=== PATIENT | male | born 1985 | race Caucasian/White ===

== ENCOUNTER 2019-09-01 00:02 | Inpatient (IN) | payer OTHER ==
--- NOTE | 2019-09-01 03:03 | PDOC ---
History of Present Illness - General Chief Complaint: Chest Pain Stated Complaint: CHEST PAINS Time Seen by Provider: 09/01/19 03:02 Past History - Past Medical History Allergies/Adverse Reactions: Allergies Allergy/AdvReac Type Severity Reaction Status Date / Time No Known Allergies Allergy Verified 09/01/19 00:18 COPD: No HTN: Yes (non medicated) Other medical history: cellulitis - Psycho Social/Smoking Cessation Hx Smoking History: Never smoked *Physical Exam - Vital Signs Last Vital Signs Temp Pulse Resp BP Pulse Ox 101.2 F H 121 H 20 151/84 98 09/01/19 00:15 09/01/19 00:15 09/01/19 00:15 09/01/19 00:15 09/01/19 00:15 ED Treatment Course - LABORATORY CBC & Chemistry Diagram: 09/01/19 03:34 09/01/19 04:28 Medical Decision Making - Medical Decision Making 09/01/19 04:04 HPI: 34yo M hx morbid obesity, HTN, and recurrent LLE cellulitis requiring multiple hospital admissions for IV antibiotics (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 States all sx are exactly same as prior cellulitis, but not as bad yet since it's early. Pt states this has been going on for many years, no trauma or wounds, no known cause. Multiple workups including CT scan of chest and ultrasound of leg without answers to cause. Does not see ID or specialist. Denies trauma, fall, hx DVT/PE, hemoptysis, recent travel (except for long drives as trucker hand), recent surgery, testosterone or hormone use, malignancy, hx CAD, FHx early CAD, fatigue, dizziness, numbness/ tingling, weakness, vision changes, cough, abdominal pain, blood in stool, diarrhea, constipation, dysuria, hematuria, confusion. PCP - Diana ROS: Constitutional: Positive for chills, fever. Negative for chills, fever, fatigue , diaphoresis. HENT: Negative for sore throat, rhinorrhea, congestion. Eyes: Negative for visual disturbance. Respiratory: Positive for shortness of breath. Negative for cough, and wheezing. Cardiovascular: Positive for chest pain, palpitations. Gastrointestinal: Positive for nausea and vomiting. Negative for abdominal pain , blood in stool, constipation, diarrhea. Genitourinary: Negative for dysuria, flank pain, and hematuria. Musculoskeletal: Positive for LLE pain. Negative for myalgias, back pain, and neck pain. Skin: Positive for erythema and warmth and swelling to LLE. Neurological: Positive for headache. Negative for light-headedness, dizziness, vertigo, syncope, weakness, numbness. Psychiatric/Behavioral: Negative for behavioral problems and confusion. PE: Gen: Alert, NAD, comfortable-appearing, obese HEENT: PERRL, EOMI, MMM, NCAT. No conjunctival pallor. Sclera are non-icteric. CV: Regular rate and rhythm. No murmurs, rubs, or gallops. PULM: No resp distress. CTAB, no wheezes, rales, or rhonchi. ABD: soft, NT/ND, no rebound tenderness or guarding, no CVA tenderness. BACK: No TTP of c/t/l-spine. No step-offs or deformities. MSK: No bony deformities. 2+ pulses in all extremities. NEURO: AAOx3. PERRL. No gross CN deficits. Strength and sensation grossly intact throughout. EXTREMITIES: No cyanosis. No clubbing. No calf tenderness. LLE: mild edema circumferentially lower leg, no erythema, mild warmth to anterior childers, anterior childers TTP, no calf tenderness, 2+ pulses, sensation to light touch intact throughout, moves ankle and toes normally. PSYCH: Normal mood and thought pattern. SKIN: Warm and dry. Normal capillary refill. No jaundice. MDM: 34yo M hx morbid obesity, HTN, and recurrent LLE cellulitis requiring multiple hospital admissions for IV antibiotics (at various hospitals) presents with acute onset x few hours of his typical LLE cellulitis sx, including LLE swelling /erythema/warmth/pain, fever, nausea, NBNB emesis x3, SOB, chest pain, headache , and palpitations. Tachycardic 120s, febrile 101.2, other VSS, +swelling and warmth to L anterior leg, LLE neurovascularly intact. Ddx: cellulitis, nec fasc (no crepitus, no severe pain/TTP, no gas on XR make of low concern), DVT, sepsis, PE, ACS/HI (HEART score 2), arrhythmia, PNA, metabolic derangement, anemia -Sepsis and cardiac set -IVF -Tylenol -XR LLE -Duplex LLE -1g Ceftriaxone and Vanc -CTPE -Dispo: pending w/u 09/01/19 04:21 Called [facility] ED - multiple outpatient ortho visits years ago, but no ED visits or admissions. Called [facility], [place] medical records - faxed release form (signed by pt) and told would send medical records back in 15mins. 09/01/19 06:09 CXR reviewed by me and attending: no acute pathology XR L tib/fib/foot reviewed by me and attending: no acute pathology, no e/o air EKG reviewed: sinus tachycardia, 119bpm, normal intervals, normal axis, TWI in III, no ST elevations or depressions, no prior for comparison Labs reviewed. CBC,CMP WBC 33.2 K/mm3 (4.0-10.0) H* 09/01/19 03:34 RBC 4.57 M/mm3 (4.00-5.60) 09/01/19 03:34 Hgb 14.4 GM/dL (11.7-16.9) 09/01/19 03:34 Hct 43.3 % (35.4-49) 09/01/19 03:34 MCV 94.7 fl (80-96) 09/01/19 03:34 MCH 31.4 pg (25.7-33.7) 09/01/19 03:34 MCHC 33.2 g/dl (32.0-35.9) 09/01/19 03:34 RDW 13.1 % (11.9-15.9) 09/01/19 03:34 Plt Count 246 K/MM3 (134-434) 09/01/19 03:34 MPV 9.3 fl (7.5-11.1) 09/01/19 03:34 Absolute Neuts (auto) 29.5 K/mm3 (1.5-8.0) H 09/01/19 03:34 Neutrophils % 88.8 % (42.8-82.8) H 09/01/19 03:34 Lymphocytes % 5.0 % (8-40) L 09/01/19 03:34 Monocytes % 5.7 % (3.8-10.2) 09/01/19 03:34 Eosinophils % 0.0 % (0-4.5) 09/01/19 03:34 Basophils % 0.5 % (0-2.0) 09/01/19 03:34 Nucleated RBC % 0 % (0-0) 09/01/19 03:34 Sodium 137 mmol/L (136-145) 09/01/19 04:28 Potassium 4.0 mmol/L (3.5-5.1) 09/01/19 04:28 Chloride 102 mmol/L (98-107) 09/01/19 04:28 Carbon Dioxide 27 mmol/L (21-32) 09/01/19 04:28 Anion Gap 8 MMOL/L (8-16) 09/01/19 04:28 BUN 8.1 mg/dL (7-18) 09/01/19 04:28 Creatinine 1.1 mg/dL (0.55-1.3) 09/01/19 04:28 Est GFR (CKD-EPI)AfAm 101.69 09/01/19 04:28 Est GFR (CKD-EPI)NonAf 87.74 09/01/19 04:28 Random Glucose 104 mg/dL (74-106) 09/01/19 04:28 Lactic Acid 1.3 mmol/L (0.4-2.0) 09/01/19 04:28 Calcium 9.3 mg/dL (8.5-10.1) 09/01/19 04:28 Phosphorus 2.8 mg/dL (2.5-4.9) 09/01/19 04:28 Magnesium 2.0 mg/dL (1.8-2.4) 09/01/19 04:28 Total Bilirubin 0.6 mg/dL (0.2-1) 09/01/19 04:28 AST 21 U/L (15-37) 09/01/19 04:28 ALT 32 U/L (13-61) 01/04/20 04:28 Alkaline Phosphatase 76 U/L (45-117) 09/01/19 04:28 Creatine Kinase 129 U/L (26-308) 09/01/19 04:28 Troponin I < 0.02 ng/ml (0.00-0.05) 09/01/19 04:28 Total Protein 7.8 g/dl (6.4-8.2) 09/01/19 04:28 Albumin 3.6 g/dl (3.4-5.0) 09/01/19 04:28 Lipase 64 U/L (73-393) L 09/01/19 04:28 TSH 1.07 uIU/ml (0.358-3.74) 09/01/19 04:28 09/01/19 07:06 Pending CTPE read, duplex, flu, 2nd trop, admit for sepsis 2/2 cellulitis. Received papers from [facility], [place] for admission 03/2017. Of note, CTPE negative, WBC 29k, cellulitis resolved with cefazolin. Signed out to oncoming team. Discharge - Discharge Information Problems reviewed: Yes Clinical Impression/Diagnosis: Cellulitis, Sepsis Condition: Stable - Follow up/Referral Referrals: Jerry Ortiz MD [Primary Care Provider] - - Patient Discharge Instructions - Post Discharge Activity
[2019-09-01] MEDS ORDERED: SODIUM CHLORIDE 0.9% 500 ML INFUS.BAG IV ONE (03:20)
[2019-09-01] MEDS ORDERED: ACETAMINOPHEN 1000 MG/100 ML VIAL (NON FORMULARY) IVPB ONE (03:20)
[2019-09-01] MEDS ORDERED: CEFTRIAXONE 1 GM in DEXTROSE 5%-WATER - 100 ML IVPB ONE (04:38)
[2019-09-01] MEDS ORDERED: cefTRIAXone SODIUM 1 GM VIAL ONE (04:46)
[2019-09-01] MEDS ORDERED: ACETAMINOPHEN INJECTION 100 ML IVPB ONE (04:46)
[2019-09-01 04:56] LABS: BASO % 0.5 % (0-2.0); HEMATOCRIT 43.3 % (35.4-49); HEMOGLOBIN 14.4 GM/dL (11.7-16.9); MCH 31.4 pg (25.7-33.7); MCHC 33.2 g/dl (32.0-35.9); MEAN CELL VOLUME 94.7 fl (80-96); MEAN PLT VOLUME 9.3 fl (7.5-11.1); MONO % 5.7 % (3.8-10.2); NEUT % 88.8 % (42.8-82.8); PLATELET COUNT 246 K/MM3 (134-434); RBC 4.57 M/mm3 (4.00-5.60); RDW 13.1 % (11.9-15.9)
[2019-09-01 05:05] LABS: WHITE BLOOD COUNT 33.2 K/mm3 (4.0-10.0)
[2019-09-01 05:09] LABS: VENOUS PC02 50.1 mmHg (38-52); VENOUS PH 7.38 (7.31-7.41)
[2019-09-01 05:12] LABS: VENOUS PO2 < 49 mmHg (28-48)
[2019-09-01 05:48] LABS: ALBUMIN 3.6 g/dl (3.4-5.0); BILIRUBIN,TOTAL 0.6 mg/dL (0.2-1); BLOOD UREA NITROGEN 8.1 mg/dL (7-18); CALCIUM 9.3 mg/dL (8.5-10.1); CREATININE 1.1 mg/dL (0.55-1.3); PHOSPHOROUS 2.8 mg/dL (2.5-4.9); TOT PROT 7.8 g/dl (6.4-8.2)
--- NOTE | 2019-09-01 05:59 | PDOC ---
Attending Attestation - Resident Resident Name: Lisa Chavis - ED Attending Attestation I have performed the following: I have examined & evaluated the patient, The case was reviewed & discussed with the resident, I agree w/resident's findings & plan, Exceptions are as noted - HPI HPI: 09/01/19 05:50 Mr kebede is a 34 o obese M who presents to the ER with a complaint of left leg pain, chest pain, and fever Pt states that over the past 10 years, he has had multiple episodes of cellulitis for which he has been treated at multiple hospitals He states his current constellation of symptoms have been present in the past each time he has had cellulitis He has noted leg pain and fever today No trauma to the leg No pain with walking PMH: PSH: Meds:denies ALL: NKDA 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 ENT: Ears normal, nares patent, oropharynx clear without exudates. Moist mucous membranes. NECK: Normal range of motion, supple LUNGS: Breath sounds equal, clear to auscultation bilaterally. No wheezes, and no crackles. HEART:Regular rate and rhythm, normal S1 and S2 without murmur, rub or gallop. ABDOMEN: Soft, nontender, normoactive bowel sounds. EXTREMITIES: Normal range of motion, no edema. NEUROLOGICAL: Cranial nerves II through XII grossly intact. Normal speech. No focal neurological deficits. SKIN: Warm, Dry, normal turgor, no rashes or lesions noted. - Medical Decision Making 09/01/19 06:00 Laboratory Tests 09/01/19 09/01/19 09/01/19 03:34 04:28 04:28 WBC 33.2 H* Hgb 14.4 Hct 43.3 Plt Count 246 VBG pH POC VBG pCO2 POC VBG pO2 BUN 8.1 Creatinine 1.1 Lactic Acid Creatine Kinase 129 Troponin I < 0.02 09/01/19 09/01/19 04:28 04:28 WBC Hgb Hct Plt Count VBG pH 7.38 POC VBG pCO2 50.1 POC VBG pO2 < 49 H BUN Creatinine Lactic Acid 1.3 Creatine Kinase Troponin I Pt with lower extremity warmth and faint Erythema EKG: ST rate of 119 bpm, axis nml, intervals nml, no st elevation or depression , t waves upright CXR: no consolidation Xray tib-fib: no free air noted, no fracture noted Xray foot-ankle: no free air, no obvious fracture Doubt necrotizing faciitis Pt with tachycardia and chest pain which are new for him Will do: CTA chest Duplex leg Will plan to admit Will do Ceftriaxone IV Clinical impression: Cellulitis, initial presentation 09/01/19 06:35
[2019-09-01 06:17] LABS: EPI CELLS 1.9 /HPF (0-5/HPF); HYALINE CASTS 13 /lpf (0-8); PH,URINE 5.5 (5.0-8.0); URINE APPEARANCE CLEAR; URINE BILIRUBIN NEGATIVE (NEGATIVE); URINE COLOR YELLOW; URINE GLUCOSE (UA) NEGATIVE (NEGATIVE); URINE KETONE TRACE (NEGATIVE); URINE LEUK ESTERASE TRACE (NEGATIVE); URINE NITRITE NEGATIVE (NEGATIVE); URINE PROTEIN TRACE (NEGATIVE); URINE RBC 3 /hpf (0-4); URINE WBC 7 /hpf (0-5)
[2019-09-01] MEDS ORDERED: VANCOMYCIN 1 GM in D5W (PRE-DOCKED) 1,000 MG/250 ML IVPB ONE (07:10)
[2019-09-01 08:04] LABS: ANISOCYTOSIS 0; HELMET CELLS 0; HOWELL-JOLLY BODIES 0; MACROCYTOSIS 0; OVALOCYTE 0; PLATELET ESTIMATE NORMAL; ROULEAU 0; SICKELED CELLS 0; TARGET CELLS 0; TEAR DROP CELLS 0; TOXIC GRANULATION 0
[2019-09-01 08:53] LABS: INR 1.32 (0.83-1.09); PROTHROMBIN TIME (PATIENT) 15.6 SEC (9.7-13.0)
[2019-09-01 08:56] LABS: ACTIVATED PTT 30.7 SECONDS (25.2-36.5)
--- NOTE | 2019-09-01 09:53 | PDOC ---
*Physical Exam - Vital Signs Last Vital Signs Temp Pulse Resp BP Pulse Ox 98.7 F 107 H 20 127/79 99 09/01/19 09:13 09/01/19 09:13 09/01/19 00:15 09/01/19 09:13 09/01/19 09:13 - Physical Exam General Appearance: Yes: Nourished, Appropriately Dressed, Mild Distress, Obese HEENT: positive: EOMI, FABIAN, Normal ENT Inspection, Pharynx Normal Neck: positive: Trachea midline, Normal Thyroid, Supple Respiratory/Chest: positive: Lungs Clear, Normal Breath Sounds Cardiovascular: positive: Tachycardia Vascular Pulses: Dorsalis-Pedis (R): 2+, Doralis-Pedis (L): 2+ Gastrointestinal/Abdominal: positive: Normal Bowel Sounds, Soft. negative: Guarding, Rebound Extremity: positive: Tender, Swelling, Calf Tenderness, Erythema, Inflammation Neurologic: positive: Fully Oriented, Alert, Normal Mood/Affect ED Treatment Course - LABORATORY CBC & Chemistry Diagram: 09/01/19 03:34 09/01/19 04:28 - ADDITIONAL ORDERS Additional order review: Laboratory Results 09/01/19 09/01/19 09/01/19 08:10 08:10 05:57 PT with INR 15.60 H INR 1.32 H PTT (Actin FS) 30.7 VBG pH POC VBG pCO2 POC VBG pO2 VBG HCO3 VBG O2 Sat (Lalita) VBG Base Excess Sodium Potassium Chloride Carbon Dioxide Anion Gap BUN Creatinine Est GFR (CKD-EPI)AfAm Est GFR (CKD-EPI)NonAf Random Glucose Lactic Acid Calcium Phosphorus Magnesium Total Bilirubin AST ALT Alkaline Phosphatase Creatine Kinase Troponin I < 0.02 Total Protein Albumin Lipase TSH Urine Color Yellow Urine Appearance Clear Urine pH 5.5 Ur Specific [place] 1.025 Urine Protein Trace Urine Glucose (UA) Negative Urine Ketones Trace H Urine Blood Negative Urine Nitrite Negative Urine Bilirubin Negative Urine Urobilinogen 1.0 Ur Leukocyte Esterase Trace Urine WBC (Auto) 7 Urine RBC (Auto) 3 Urine Casts (Auto) 13 U Epithel Cells (Auto) 1.9 Urine Bacteria (Auto) 79.0 09/01/19 09/01/19 09/01/19 04:28 04:28 04:28 PT with INR INR PTT (Actin FS) VBG pH 7.38 POC VBG pCO2 50.1 POC VBG pO2 < 49 H VBG HCO3 29.3 H VBG O2 Sat (Lalita) 28.3 L VBG Base Excess 3.6 H Sodium Potassium Chloride Carbon Dioxide Anion Gap BUN Creatinine Est GFR (CKD-EPI)AfAm Est GFR (CKD-EPI)NonAf Random Glucose Lactic Acid Calcium Phosphorus 2.8 Magnesium 2.0 Total Bilirubin AST ALT Alkaline Phosphatase Creatine Kinase Troponin I Total Protein Albumin Lipase TSH 1.07 Urine Color Urine Appearance Urine pH Ur Specific [place] Urine Protein Urine Glucose (UA) Urine Ketones Urine Blood Urine Nitrite Urine Bilirubin Urine Urobilinogen Ur Leukocyte Esterase Urine WBC (Auto) Urine RBC (Auto) Urine Casts (Auto) U Epithel Cells (Auto) Urine Bacteria (Auto) 09/01/19 09/01/19 09/01/19 04:28 04:28 04:28 PT with INR INR PTT (Actin FS) VBG pH POC VBG pCO2 POC VBG pO2 VBG HCO3 VBG O2 Sat (Lalita) VBG Base Excess Sodium 137 Potassium 4.0 Chloride 102 Carbon Dioxide 27 Anion Gap 8 BUN 8.1 Creatinine 1.1 Est GFR (CKD-EPI)AfAm 101.69 Est GFR (CKD-EPI)NonAf 87.74 Random Glucose 104 Lactic Acid 1.3 Calcium 9.3 Phosphorus Magnesium Total Bilirubin 0.6 AST 21 ALT 32 Alkaline Phosphatase 76 Creatine Kinase Troponin I Total Protein 7.8 Albumin 3.6 Lipase 64 L TSH Urine Color Urine Appearance Urine pH Ur Specific [place] Urine Protein Urine Glucose (UA) Urine Ketones Urine Blood Urine Nitrite Urine Bilirubin Urine Urobilinogen Ur Leukocyte Esterase Urine WBC (Auto) Urine RBC (Auto) Urine Casts (Auto) U Epithel Cells (Auto) Urine Bacteria (Auto) 09/01/19 04:28 PT with INR INR PTT (Actin FS) VBG pH POC VBG pCO2 POC VBG pO2 VBG HCO3 VBG O2 Sat (Lalita) VBG Base Excess Sodium Potassium Chloride Carbon Dioxide Anion Gap BUN Creatinine Est GFR (CKD-EPI)AfAm Est GFR (CKD-EPI)NonAf Random Glucose Lactic Acid Calcium Phosphorus Magnesium Total Bilirubin AST ALT Alkaline Phosphatase Creatine Kinase 129 Troponin I < 0.02 Total Protein Albumin Lipase TSH Urine Color Urine Appearance Urine pH Ur Specific [place] Urine Protein Urine Glucose (UA) Urine Ketones Urine Blood Urine Nitrite Urine Bilirubin Urine Urobilinogen Ur Leukocyte Esterase Urine WBC (Auto) Urine RBC (Auto) Urine Casts (Auto) U Epithel Cells (Auto) Urine Bacteria (Auto) 09/01/19 03:34 RBC 4.57 MCV 94.7 MCHC 33.2 RDW 13.1 MPV 9.3 Neutrophils % 88.8 H Lymphocytes % 5.0 L Monocytes % 5.7 Eosinophils % 0.0 Basophils % 0.5 - Medications Given in the ED: ED Medications Discontinued Medications Generic Name Dose Route Start Last Admin Trade Name Shweta PRN Reason Stop Dose Admin Acetaminophen 1,000 mg 09/01/19 03:20 09/01/19 04:58 Ofirmev Injection - IVPB 09/01/19 03:21 1,000 mg ONCE ONE Administration Ceftriaxone Sodium 1 gm/ 100 mls @ 200 mls/hr 09/01/19 04:38 09/01/19 04:58 Dextrose IVPB 09/01/19 05:07 200 mls/hr ONCE ONE Administration Sodium Chloride 1,000 ml 09/01/19 03:20 09/01/19 04:58 Normal Saline - IV 09/01/19 03:21 1,000 ml ONCE ONE Administration Vancomycin HCl 1,000 mg 09/01/19 07:10 09/01/19 09:00 Vancomycin (Pre-Docked) IVPB 09/01/19 07:11 1,000 mg ONCE ONE Administration Protocol Medical Decision Making - Medical Decision Making 34yo M pmh morbid obesity, HTN, and recurrent LLE cellulitis requiring multiple hospital admissions for IV antibiotics (at various hospitals) presents with acute onset x few hours of his typical LLE cellulitis #Cellulitis no crepitus, no severe pain/TTP, no gas on XR make of low concern), Duplex LLE- no DVT 1g Ceftriaxone and Vanc CTPE- no acute cahnges Dispo: admitted under Dr. Tellez service 09/01/19 10:38 09/01/19 10:40 Discharge - Discharge Information Problems reviewed: Yes Clinical Impression/Diagnosis: Cellulitis, Sepsis Condition: Stable - Follow up/Referral - Patient Discharge Instructions - Post Discharge Activity
[2019-09-01] MEDS ORDERED: ACETAMINOPHEN 325 MG TABLET (FP) PO PRN (12:11)
[2019-09-01] MEDS ORDERED: ONDANSETRON *ODT* 4 MG TABLET SL PRN (12:11)
--- NOTE | 2019-09-01 12:16 | HP ---
Admitting History and Physical - Primary Care Physician PCP: Fabio Tellez - Admission Chief Complaint: 34 Y/O MORBIDLY OBESE MALE WITH 2 DAYS OF REDNESS TO LEFT LOWER EXTEREMITY History of Present Illness: 34 Y/O MAKE HTN, MORBID OBESITY WITH LEFT LOWER EXTREMITY ERYTHEMA, DENIES TRAVELING RECENTLY AND DENIES INSECT BITES. CHEST PAIN WAS ATYPICAL AND CT JOSUÉ AND CARDIAC ENZYMES WERE NEGATIVE. History Source: Patient - Past Medical History Cardiovascular: Yes: HTN - Smoking History Smoking history: Never smoked Home Medications - Allergies Allergies/Adverse Reactions: Allergies Allergy/AdvReac Type Severity Reaction Status Date / Time No Known Allergies Allergy Verified 09/01/19 00:18 - Home Medications Home Medications: Ambulatory Orders NK [No Known Home Medication] 09/01/19 Review of Systems - Review of Systems Constitutional: reports: Fever Cardiovascular: reports: No Symptoms Respiratory: reports: No Symptoms Gastrointestinal: reports: No Symptoms Genitourinary: reports: No Symptoms Integumentary: reports: Erythema Neurological: reports: No Symptoms Endocrine: reports: No Symptoms Hematology/Lymphatic: reports: No Symptoms Psychiatric: reports: No Symptoms Physical Examination Vital Signs: Vital Signs Temperature 98.7 F 09/01/19 09:13 Pulse Rate 107 H 09/01/19 09:13 Respiratory Rate 20 09/01/19 00:15 Blood Pressure 127/79 09/01/19 09:13 O2 Sat by Pulse Oximetry (%) 99 09/01/19 09:13 Constitutional: Yes: Mild Distress Cardiovascular: Yes: Regular Rate and Rhythm Respiratory: Yes: WNL Gastrointestinal: Yes: Soft, Abdomen, Obese Renal/: Yes: WNL Musculoskeletal: Yes: Muscle Weakness Extremities: Yes: Erythema (LEFT LOWER LEG ERYTHEMA AND TENDERNESS) Integumentary: Yes: Erythema Wound/Incision: Yes: Open to air Neurological: Yes: WNL ...Motor Strength: WNL Psychiatric: Yes: WNL Labs: CBC, BMP 09/01/19 03:34 09/01/19 04:28 Problem List - Problems (1) Morbid obesity with BMI of 40.0-44.9, adult Code(s): E66.01 - MORBID (SEVERE) OBESITY DUE TO EXCESS CALORIES; Z68.41 - BODY MASS INDEX (BMI) 40.0-44.9, ADULT (2) Hypertension Code(s): I10 - ESSENTIAL (PRIMARY) HYPERTENSION (3) Cellulitis Code(s): L03.90 - CELLULITIS, UNSPECIFIED Assessment/Plan IV ABX CEFTRIAXONE IV DAILY DVT PROPHYLAXIS TYLENOL PRN CHECK CULTURES RAPID FLU SWAB FOR FEVERS
[2019-09-01 12:21] VITALS: BMI 55.3
[2019-09-01] MEDS ORDERED: FLU VACCINE QUAD 60 MCG/0.5 ML (MDV 19-20) IM ONE (13:01)
--- NOTE | 2019-09-01 23:17 | EKG ---
Test Reason : Blood Pressure : / mmHG Vent. Rate : 119 BPM Atrial Rate : 119 BPM P-R Int : 134 ms QRS Dur : 086 ms QT Int : 304 ms P-R-T Axes : 050 063 -19 degrees QTc Int : 427 ms SINUS TACHYCARDIA ABNORMAL ECG NO PREVIOUS ECGS AVAILABLE Confirmed by WILLIAM VIZCARRA MD ([id number]) on 09/01/2019 11:16:55 PM Referred By: Confirmed By:WILLIAM VIZCARRA MD
[2019-09-01] MEDS: HEPARIN NA (PORCINE) 5,000 UNITS/ML 1ML VIAL SQ SCH (23:21)
[2019-09-02] MEDS ORDERED: LISINOPRIL 5 MG TABLET (FP) PO ONE (01:34)
[2019-09-02] MEDS ORDERED: PT OWN MED DRAWER 7, Y5N ONE (01:38)
--- NOTE | 2019-09-02 08:40 | PN ---
Progress Note, Physician Chief Complaint: FEELS BETTER +CHILLS OVERNIGHT - Current Medication List Current Medications: Active Medications Acetaminophen (Tylenol -) 650 mg PO Q6H PRN PRN Reason: FEVER Last Admin: 09/01/19 12:42 Dose: 650 mg Heparin Sodium (Porcine) (Heparin -) 5,000 unit SQ BID GINNY Last Admin: 09/01/19 23:21 Dose: 5,000 unit Ceftriaxone Sodium 1 gm/ (Dextrose) 50 mls @ 200 mls/hr IVPB DAILY [facility]; Protocol Influenza Virus Vaccine Quadrival (Flulaval Quad ) 60 mcg IM .ONCE ONE Stop: 09/01/19 13:02 Ondansetron HCl (Zofran Odt -) 8 mg SL Q6H PRN PRN Reason: NAUSEA AND/OR VOMITING - Objective Vital Signs: Vital Signs Temperature 98.9 F 09/02/19 06:53 Pulse Rate 85 09/02/19 06:53 Respiratory Rate 18 09/02/19 06:53 Blood Pressure 129/91 09/02/19 06:53 O2 Sat by Pulse Oximetry (%) 99 09/01/19 21:00 Constitutional: Yes: Mild Distress Cardiovascular: Yes: Regular Rate and Rhythm Respiratory: Yes: WNL Gastrointestinal: Yes: WNL Genitourinary: Yes: WNL Musculoskeletal: Yes: WNL Edema: Yes Edema: LLE: 1+ Wound/Incision: Yes: Open to air Neurological: Yes: WNL ...Motor Strength: WNL Psychiatric: Yes: WNL Labs: CBC, BMP 09/01/19 03:34 09/01/19 04:28 INR, PTT INR 1.32 (0.83-1.09) H 09/01/19 08:10 Problem List - Problems (1) Morbid obesity with BMI of 40.0-44.9, adult Code(s): E66.01 - MORBID (SEVERE) OBESITY DUE TO EXCESS CALORIES; Z68.41 - BODY MASS INDEX (BMI) 40.0-44.9, ADULT (2) Hypertension Code(s): I10 - ESSENTIAL (PRIMARY) HYPERTENSION (3) Cellulitis Code(s): L03.90 - CELLULITIS, UNSPECIFIED Assessment/Plan IV ABX CEFTRIAXONE IV DAILY DVT PROPHYLAXIS TYLENOL PRN CHECK CULTURES RAPID FLU SWAB FOR FEVERS NEGATIVE
[2019-09-02 09:21] LABS: HEMATOCRIT 42.6 % (35.4-49); HEMOGLOBIN 14.3 GM/dL (11.7-16.9); MCH 31.9 pg (25.7-33.7); MCHC 33.5 g/dl (32.0-35.9); MEAN CELL VOLUME 95.1 fl (80-96); MEAN PLT VOLUME 9.5 fl (7.5-11.1); PLATELET COUNT 205 K/MM3 (134-434); RBC 4.48 M/mm3 (4.00-5.60); WHITE BLOOD COUNT 13.3 K/mm3 (4.0-10.0)
[2019-09-02] MEDS ORDERED: DEXTROSE 5%-WATER - 50 ML IVPB ONE (09:43)
[2019-09-02] MEDS ORDERED: cefTRIAXone SODIUM 1 GM VIAL ONE (09:43)
[2019-09-02] MEDS ORDERED: CEFTRIAXONE 1 GM in DEXTROSE 5%-WATER - 50 ML IVPB SCH (10:00)
[2019-09-02 10:02] LABS: ALBUMIN 3.2 g/dl (3.4-5.0); BILIRUBIN,TOTAL 0.6 mg/dL (0.2-1); BLOOD UREA NITROGEN 8.1 mg/dL (7-18); CREATININE 0.7 mg/dL (0.55-1.3); POTASSIUM 3.8 mmol/L (3.5-5.1); TOT PROT 7.2 g/dl (6.4-8.2)
[2019-09-02] MEDS: HEPARIN NA (PORCINE) 5,000 UNITS/ML 1ML VIAL SQ SCH ×2 (10:05→21:57)
--- NOTE | 2019-09-02 19:46 | PN ---
Progress Note (short form) - Note Progress Note: ID CONSULT DICTATED RECURRENT L LE CELLULITIS FEVER/ LEUKOCYTOSIS R/O SEPSIS MORBID OBESITY PENDING C/S EMPIRIC CEFAZOLIN 2GM Q8H
[2019-09-02] MEDS: CEFAZOLIN 2 GM/D5W 2 GM/50 ML ML IVPB SCH (20:29)
[2019-09-03] MEDS: CEFAZOLIN 2 GM/D5W 2 GM/50 ML ML IVPB SCH ×3 (01:57→18:07)
[2019-09-03] MEDS: HEPARIN NA (PORCINE) 5,000 UNITS/ML 1ML VIAL SQ SCH ×2 (09:45→21:18)
--- NOTE | 2019-09-03 12:51 | PN ---
Progress Note, Physician Chief Complaint: LLE cellulitis History of Present Illness: NAD Pain improved /10 now On IV abx - Current Medication List Current Medications: Active Medications Acetaminophen (Tylenol -) 650 mg PO Q6H PRN PRN Reason: FEVER Last Admin: 09/01/19 12:42 Dose: 650 mg Heparin Sodium (Porcine) (Heparin -) 5,000 unit SQ BID GINNY Last Admin: 09/03/19 09:45 Dose: 5,000 unit Cefazolin Sodium/Dextrose (Ancef 2 Gm Premixed Ivpb -) 2 gm in 50 mls @ 100 mls /hr IVPB Q8H-IV GINNY Last Admin: 09/03/19 09:45 Dose: 100 mls/hr Ondansetron HCl (Zofran Odt -) 8 mg SL Q6H PRN PRN Reason: NAUSEA AND/OR VOMITING - Objective Vital Signs: Vital Signs Temperature 98.4 F 09/03/19 08:10 Pulse Rate 85 09/03/19 08:10 Respiratory Rate 09/03/19 08:10 Blood Pressure 153/83 09/03/19 08:10 O2 Sat by Pulse Oximetry (%) 98 09/02/19 21:00 Constitutional: Yes: Well Nourished, No Distress, Calm, Obese Cardiovascular: Yes: Regular Rate and Rhythm Respiratory: Yes: Regular Gastrointestinal: Yes: WNL, Normal Bowel Sounds, Soft, Abdomen, Obese Genitourinary: Yes: WNL Musculoskeletal: Yes: WNL Extremities: Yes: WNL Edema: No Peripheral Pulses WNL: Yes Integumentary: Yes: Other (LLE warm and tender to touch) Neurological: Yes: Alert, Oriented Psychiatric: Yes: Alert, Oriented Labs: CBC, BMP 09/02/19 08:30 09/02/19 08:30 INR, PTT INR 1.32 (0.83-1.09) H 09/01/19 08:10 Problem List - Problems (1) Cellulitis Assessment/Plan: -Continue IV abx -ID on board -Leukocytosis improved -afebrile now Problems reviewed: Yes Code(s): L03.90 - CELLULITIS, UNSPECIFIED (2) Morbid obesity with BMI of 40.0-44.9, adult Problems reviewed: Yes Code(s): E66.01 - MORBID (SEVERE) OBESITY DUE TO EXCESS CALORIES; Z68.41 - BODY MASS INDEX (BMI) 40.0-44.9, ADULT Assessment/Plan see problem list
--- NOTE | 2019-09-03 12:59 | CONS ---
INFECTIOUS DISEASE CONSULTATION DATE OF CONSULTATION: DATE OF DICTATION: 09/02/2019 HISTORY: The patient is a 34-year-old male with a history of recurrent left lower extremity cellulitis now admitted with cellulitis, fever, and leukocytosis. The patient reports a long history of recurrent cellulitis of the left lower extremity. He has had multiple previous hospital admissions at other institutions. He reports that workups in the past have been unrevealing. He now presents with a several-hour history of worsening left lower extremity swelling, erythema, warmth, and pain. He presented to the emergency room where he was noted to have temperature 101.2 and a white blood cell count of 33,000. He reports fever, nausea, and vomiting. The patient denies any traumatic injury to his left lower extremity. No history of insect or animal bites or scratches. He denies prior history of multidrug-resistant pathogens. PAST MEDICAL HISTORY: Positive for recurrent left lower extremity cellulitis, obesity, hypertension. ALLERGIES: No known allergies. MEDICATIONS: Include Tylenol, ceftriaxone, heparin, lisinopril, vancomycin. 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 He is a nonsmoker, nondrinker. SYSTEMS REVIEW: Neurologic: No loss of consciousness, seizure activity, focal weakness. Cardiac: Positive for chest pain. Respiratory: Negative cough or sputum production. Gastrointestinal: Positive nausea, diarrhea. Genitourinary: Negative for urinary tract infection. LABORATORY DATA: White count 33.0 with left shift, hematocrit 43.3, platelets 246, creatinine 0.7. Lactic acid normal. Doppler exam negative for DVT. PHYSICAL EXAMINATION: General: He is obese. Supine in bed in no acute distress. Vital Signs: Temperature 97.7, blood pressure 135/76, pulse 95 regular, respirations 20 per minute. HEENT: Sclerae anicteric. Heart: Sounds S1, S2. Lungs: Clear. Abdomen: Obese, soft, nontender. Extremities: Examination of the left lower extremity, there is diffuse swelling of the left lower extremity from the thigh to the foot. It appears larger than his right lower extremity. There is some faint erythema involving the distal aspect of the left lower extremity. It is warm to touch. There is slight calf tenderness. Negative for Homans sign. IMPRESSION: 1. Recurrent left lower extremity cellulitis. 2. Fever, leukocytosis, rule out sepsis. 3. Morbid obesity. PLAN: Await cultures. Empiric antibiotic coverage with cefazolin 2 g IV piggyback every 8 hours. Elevation. Analgesics. Thank you for the kind referral. SOFIA JONES M.D. [facility]/[id number]
[2019-09-03] MEDS: LISINOPRIL 5 MG TABLET (FP) PO SCH (16:34)
[2019-09-04] MEDS: CEFAZOLIN 2 GM/D5W 2 GM/50 ML ML IVPB SCH ×2 (02:53→11:11)
[2019-09-04 08:08] LABS: BASO % 0.9 % (0-2.0); HEMATOCRIT 40.9 % (35.4-49); HEMOGLOBIN 13.6 GM/dL (11.7-16.9); LYMPH % 23.7 % (8-40); MCH 31.4 pg (25.7-33.7); MCHC 33.2 g/dl (32.0-35.9); MEAN CELL VOLUME 94.6 fl (80-96); MEAN PLT VOLUME 9.2 fl (7.5-11.1); MONO % 8.3 % (3.8-10.2); NEUT % 66.1 % (42.8-82.8); PLATELET COUNT 234 K/MM3 (134-434); RBC 4.33 M/mm3 (4.00-5.60); RDW 12.9 % (11.9-15.9); WHITE BLOOD COUNT 12.2 K/mm3 (4.0-10.0)
[2019-09-04 08:18] LABS: ALBUMIN 3.2 g/dl (3.4-5.0); BILIRUBIN,TOTAL 0.3 mg/dL (0.2-1); BLOOD UREA NITROGEN 8.1 mg/dL (7-18); CALCIUM 8.8 mg/dL (8.5-10.1); CREATININE 0.7 mg/dL (0.55-1.3)
[2019-09-04] MEDS: LISINOPRIL 5 MG TABLET (FP) PO SCH (11:11)
[2019-09-04] MEDS: HEPARIN NA (PORCINE) 5,000 UNITS/ML 1ML VIAL SQ SCH (11:11)
--- NOTE | 2019-09-04 11:16 | DS ---
Physical Examination Vital Signs: Vital Signs Temperature 98.2 F 09/04/19 07:00 Pulse Rate 96 H 09/04/19 07:00 Respiratory Rate 20 09/04/19 07:00 Blood Pressure 154/78 09/04/19 07:00 O2 Sat by Pulse Oximetry (%) 98 09/03/19 21:00 Findings/Remarks: Mr kebede is a 34 o obese M who presents to the ER with a complaint of left leg pain, chest pain, and fever Pt states that over the past 10 years, he has had multiple episodes of cellulitis for which he has been treated at multiple hospitals He states his current constellation of symptoms have been present in the past each time he has had cellulitis He has noted leg pain and fever today No trauma to the leg No pain with walking Constitutional: Yes: Well Nourished, No Distress, Calm, Obese Cardiovascular: Yes: Regular Rate and Rhythm Respiratory: Yes: Regular Gastrointestinal: Yes: Normal Bowel Sounds, Soft, Abdomen, Obese Musculoskeletal: Yes: WNL Extremities: Yes: WNL Edema: No Peripheral Pulses WNL: Yes Neurological: Yes: Alert, Oriented Psychiatric: Yes: Alert, Oriented Labs: CBC, BMP 09/04/19 06:35 09/04/19 06:35 Discharge Summary Problems reviewed: Yes Reason For Visit: CELLULITIS/SEPSIS Current Active Problems Cellulitis (Acute) Hypertension (Acute) Morbid obesity with BMI of 40.0-44.9, adult (Acute) Sepsis (Acute) Laboratory Last Values WBC 12.2 K/mm3 (4.0-10.0) H 09/04/19 06:35 RBC 4.33 M/mm3 (4.00-5.60) 09/04/19 06:35 Hgb 13.6 GM/dL (11.7-16.9) 09/04/19 06:35 Hct 40.9 % (35.4-49) 09/04/19 06:35 MCV 94.6 fl (80-96) 09/04/19 06:35 MCH 31.4 pg (25.7-33.7) 09/04/19 06:35 MCHC 33.2 g/dl (32.0-35.9) 09/04/19 06:35 RDW 12.9 % (11.9-15.9) 09/04/19 06:35 Plt Count 234 K/MM3 (134-434) 09/04/19 06:35 MPV 9.2 fl (7.5-11.1) 09/04/19 06:35 Absolute Neuts (auto) 8.1 K/mm3 (1.5-8.0) H 09/04/19 06:35 Neutrophils % 66.1 % (42.8-82.8) D 09/04/19 06:35 Neutrophils % (Manual) 93.0 % (42.8-82.8) H 09/01/19 03:34 Band Neutrophils % 1.0 % 09/01/19 03:34 Lymphocytes % 23.7 % (8-40) D 09/04/19 06:35 Lymphocytes % (Manual) 3.0 % (8-40) L 09/01/19 03:34 Monocytes % 8.3 % (3.8-10.2) 09/04/19 06:35 Monocytes % (Manual) 0 % (3.8-10.2) L 09/01/19 03:34 Eosinophils % 1.0 % (0-4.5) D 09/04/19 06:35 Eosinophils % (Manual) 0.0 % (0-4.5) 09/01/19 03:34 Basophils % 0.9 % (0-2.0) 09/04/19 06:35 Basophils % (Manual) 0.0 % (0-2.0) 09/01/19 03:34 Myelocytes % (Man) 0 % (0-2) 09/01/19 03:34 Promyelocytes % (Man) 0 % (0-2) 09/01/19 03:34 Blast Cells % (Manual) 0 % (0-0) 09/01/19 03:34 Nucleated RBC % 0 % (0-0) 09/04/19 06:35 Metamyelocytes 0 % (0-2) 09/01/19 03:34 Hypochromia 0 09/01/19 03:34 Toxic Granulation 0 09/01/19 03:34 Dohle Bodies 0 09/01/19 03:34 Platelet Estimate Normal 09/01/19 03:34 Polychromasia 0 09/01/19 03:34 Poikilocytosis 0 09/01/19 03:34 Basophilic Stippling 0 09/01/19 03:34 Anisocytosis 0 09/01/19 03:34 Microcytosis 0 09/01/19 03:34 Macrocytosis 0 09/01/19 03:34 Spherocytes 0 09/01/19 03:34 Sickle Cells 0 09/01/19 03:34 Target Cells 0 09/01/19 03:34 Tear Drop Cells 0 09/01/19 03:34 Ovalocytes 0 09/01/19 03:34 Stomatocytes 0 09/01/19 03:34 Helmet Cells 0 09/01/19 03:34 Garcia-Datil Bodies 0 09/01/19 03:34 [place] Rings 0 09/01/19 03:34 Haider Cells 0 09/01/19 03:34 Acanthocytes (Spur) 0 09/01/19 03:34 Rouleaux 0 09/01/19 03:34 Fragmented RBCs 0 09/01/19 03:34 Schistocytes 0 09/01/19 03:34 PT with INR 15.60 SEC (9.7-13.0) H 09/01/19 08:10 INR 1.32 (0.83-1.09) H 09/01/19 08:10 PTT (Actin FS) 30.7 SECONDS (25.2-36.5) 09/01/19 08:10 VBG pH 7.38 (7.31-7.41) 09/01/19 04:28 POC VBG pCO2 50.1 mmHg (38-52) 09/01/19 04:28 POC VBG pO2 < 49 mmHg (28-48) H 09/01/19 04:28 VBG HCO3 29.3 mmol/L (23-29) H 09/01/19 04:28 VBG O2 Sat ([place]alita) 28.3 % (70-80) L 09/01/19 04:28 VBG Base Excess 3.6 meq/l (-2-2) H 09/01/19 04:28 Sodium 138 mmol/L (136-145) 09/04/19 06:35 Potassium 4.0 mmol/L (3.5-5.1) 09/04/19 06:35 Chloride 104 mmol/L (98-107) 09/04/19 06:35 Carbon Dioxide 27 mmol/L (21-32) 09/04/19 06:35 Anion Gap 7 MMOL/L (8-16) L 09/04/19 06:35 BUN 8.1 mg/dL (7-18) 09/04/19 06:35 Creatinine 0.7 mg/dL (0.55-1.3) 09/04/19 06:35 Est GFR (CKD-EPI)AfAm 143.71 09/04/19 06:35 Est GFR (CKD-EPI)NonAf 123.99 09/04/19 06:35 Random Glucose 89 mg/dL (74-106) 09/04/19 06:35 Hemoglobin A1c % 4.9 % (4.2-6.3) 09/04/19 06:35 Lactic Acid 1.3 mmol/L (0.4-2.0) 09/01/19 04:28 Calcium 8.8 mg/dL (8.5-10.1) 09/04/19 06:35 Phosphorus 2.8 mg/dL (2.5-4.9) 09/01/19 04:28 Magnesium 2.0 mg/dL (1.8-2.4) 09/01/19 04:28 Total Bilirubin 0.3 mg/dL (0.2-1) 09/04/19 06:35 AST 15 U/L (15-37) 09/04/19 06:35 ALT 25 U/L (13-61) 09/04/19 06:35 Alkaline Phosphatase 63 U/L (45-117) 09/04/19 06:35 Creatine Kinase 129 U/L (26-308) 09/01/19 04:28 Troponin I < 0.02 ng/ml (0.00-0.05) 09/01/19 08:10 Total Protein 7.0 g/dl (6.4-8.2) 09/04/19 06:35 Albumin 3.2 g/dl (3.4-5.0) L 09/04/19 06:35 Lipase 64 U/L (73-393) L 09/01/19 04:28 TSH 1.07 uIU/ml (0.358-3.74) 09/01/19 04:28 Urine Color Yellow 09/01/19 05:57 Urine Appearance Clear 09/01/19 05:57 Urine pH 5.5 (5.0-8.0) 09/01/19 05:57 Ur Specific [place] 1.025 (1.010-1.035) 09/01/19 05:57 Urine Protein Trace (NEGATIVE) 09/01/19 05:57 Urine Glucose (UA) Negative (NEGATIVE) 09/01/19 05:57 Urine Ketones Trace (NEGATIVE) H 09/01/19 05:57 Urine Blood Negative (NEGATIVE) 09/01/19 05:57 Urine Nitrite Negative (NEGATIVE) 09/01/19 05:57 Urine Bilirubin Negative (NEGATIVE) 09/01/19 05:57 Urine Urobilinogen 1.0 mg/dL (0.2-1.0) 09/01/19 05:57 Ur Leukocyte Esterase Trace (NEGATIVE) 09/01/19 05:57 Urine WBC (Auto) 7 /hpf (0-5) 09/01/19 05:57 Urine RBC (Auto) 3 /hpf (0-4) 09/01/19 05:57 Urine Casts (Auto) 13 /lpf (0-8) 09/01/19 05:57 U Epithel Cells (Auto) 1.9 /HPF (0-5/HPF) 09/01/19 05:57 Urine Bacteria (Auto) 79.0 /hpf (NEGATIVE) 09/01/19 05:57 Influenza A (Rapid) Negative (Negative) 09/01/19 06:30 Influenza B (Rapid) Negative (Negative) 09/01/19 06:30 Microbiology 09/01/19 04:28 Blood - Peripheral Venous Blood Culture - Preliminary NO GROWTH OBTAINED AFTER 72 HOURS, INCUBATION TO CONTINUE FOR 2 DAYS. 09/01/19 04:28 Blood - Peripheral Venous Blood Culture - Preliminary NO GROWTH OBTAINED AFTER 72 HOURS, INCUBATION TO CONTINUE FOR 2 DAYS. 09/01/19 05:57 Urine - Urine Clean Catch Urine Culture - Final Contaminated: Please Repeat Vital Signs Temp 98.2 F 09/04/19 07:00 Pulse 96 H 09/04/19 07:00 Resp 20 09/04/19 07:00 BP 154/78 09/04/19 07:00 Pulse Ox 98 09/03/19 21:00 Intake & Output 09/03/19 09/03/19 09/04/19 11:59 23:59 11:59 Intake Total 50 950 300 Output Total 300 Balance -250 950 300 Intake: IVPB 50 100 100 Oral 850 200 Output: Urine 300 Void 300 Other: Voiding Method Toilet Toilet # Unmeasured Voids Void 1 2 Bowel Movement No Yes # Bowel Movements 1 1 Condition: Stable - Instructions Referrals: Jerry Ortiz MD [Primary Care Provider] - Disposition: HOME - Home Medications Comprehensive Discharge Medication List: Ambulatory Orders Acetaminophen [Tylenol .Regular Strength -] 650 mg PO Q6H PRN tablet 09/04/19 Cephalexin [Keflex] 500 mg PO Q6H #28 capsule 09/04/19 Lisinopril [Prinivil] 5 mg PO DAILY #30 tablet 09/04/19 Prescription Drug Monitoring Program (I-STOP) results: I-STOP reviewed and no issues identified
[2019-09-04 11:31] VITALS: BP 110/67; PULSE 88; TEMP 99.3
== END 2019-09-04 02:15 | disposition home or self-care (01) | DRG 720 ==
LOC: JER 00:02 → JERBED 09:00 → J5S 10:46
PROVIDERS: ADMIT Family Medicine; ATTEND Family Medicine
DX: A41.9 Sepsis, unspecified organism (principal); E66.01 Morbid (severe) obesity due to excess calories; Z68.43 Body mass index [BMI] 50.0-59.9, adult; I10 Essential (primary) hypertension; L03.116 Cellulitis of left lower limb; D72.829 Elevated white blood cell count, unspecified; R00.0 Tachycardia, unspecified; R50.9 Fever, unspecified
CPT/HCPCS: 36415; 71046-TC-FY; 71275-TC; 73590-TC-LT-FY; 73610-TC-LT-FY; 73630-TC-LT; 80053; 81003; 82550; 82803; 83036; 83605; 83690; 83735; 84100; 84443; 84484; 85025; 85027; 85610; 85730; 87040; 87086; 87804; 93005; 93010; 93971-TC; 99284-25; J0131; J1644; Q9967

== ENCOUNTER 2020-11-01 17:32 | Inpatient (IN) | payer OTHER ==
[2020-11-01] MEDS ORDERED: SODIUM CHLORIDE 0.9% 500 ML INFUS.BAG IV ONE (18:25)
[2020-11-01] MEDS ORDERED: hydrALAZINE HCL 10 MG TABLET PO ONE (18:26)
[2020-11-01 19:07] LABS: BASO % 0.2 % (0-2.0); EOS % 0.8 % (0-4.5); HEMATOCRIT 42.9 % (35.4-49); HEMOGLOBIN 14.6 GM/dL (11.7-16.9); LYMPH % 21.3 % (8-40); MCH 31.7 pg (25.7-33.7); MEAN CELL VOLUME 93.3 fl (80-96); NEUT % 69.7 % (42.8-82.8); PLATELET COUNT 258 K/MM3 (134-434); RDW 12.9 % (11.9-15.9); WHITE BLOOD COUNT 15.6 K/mm3 (4.0-10.0)
[2020-11-01 19:23] LABS: CALCIUM 9.3 mg/dL (8.5-10.1)
[2020-11-01 19:24] LABS: ALBUMIN 3.6 g/dl (3.4-5.0); BLOOD UREA NITROGEN 11.9 mg/dL (7-18)
[2020-11-01 19:27] LABS: CREATININE 0.9 mg/dL (0.55-1.3)
[2020-11-01 19:29] LABS: BILIRUBIN,TOTAL 0.4 mg/dL (0.2-1); TOT PROT 8.1 g/dl (6.4-8.2)
[2020-11-01] MEDS ORDERED: VANCOMYCIN 1 GM in D5W (PRE-DOCKED) 1,000 MG/250 ML IVPB ONE (19:47)
[2020-11-01 20:29] LABS: EPI CELLS 11 /uL (0-25.1); HYALINE CASTS 30 /uL (0-3.1); PH,URINE 5.5 (5.0-8.0); URINE APPEARANCE CLEAR; URINE BACTERIA 160 /uL (0-1359); URINE BILIRUBIN NEGATIVE (NEGATIVE); URINE COLOR YELLOW; URINE GLUCOSE (UA) NEGATIVE (NEGATIVE); URINE KETONE TRACE (NEGATIVE); URINE LEUK ESTERASE 2+ (NEGATIVE); URINE NITRITE NEGATIVE (NEGATIVE); URINE PROTEIN NEGATIVE (NEGATIVE); URINE RBC 31 /uL (0-23.9); URINE UROBILINOGEN 0.2 mg/dL (0.2-1.0); URINE WBC 348 /uL (0-25.8)
[2020-11-01] MEDS ORDERED: VANCOMYCIN 1 GRAM (PRE-DOCKED) 1,000 MG/250 ML BAG IVPB ONE (20:49)
[2020-11-02] MEDS ORDERED: ACETAMINOPHEN 325 MG TABLET (FP) PO PRN (01:03)
[2020-11-02 01:33] VITALS: BMI 60.4
[2020-11-02] MEDS: BENZOCAINE/MENTH/CETYLPYRD CL 1 EACH LOZENGE MM PRN ×2 (06:15→10:48)
[2020-11-02 08:32] LABS: BASO % 1.2 % (0-2.0); EOS % 1.5 % (0-4.5); HEMATOCRIT 38.7 % (35.4-49); HEMOGLOBIN 13.1 GM/dL (11.7-16.9); LYMPH % 23.1 % (8-40); MCHC 33.9 g/dl (32.0-35.9); MEAN CELL VOLUME 94.3 fl (80-96); MEAN PLT VOLUME 9.3 fl (7.5-11.1); MONO % 9.4 % (3.8-10.2); NEUT % 64.8 % (42.8-82.8); PLATELET COUNT 212 K/MM3 (134-434); RBC 4.11 M/mm3 (4.00-5.60); RDW 13.1 % (11.9-15.9); WHITE BLOOD COUNT 11.4 K/mm3 (4.0-10.0)
[2020-11-02 08:41] LABS: CALCIUM 8.7 mg/dL (8.5-10.1)
[2020-11-02 08:42] LABS: ALBUMIN 3.1 g/dl (3.4-5.0); BLOOD UREA NITROGEN 9.2 mg/dL (7-18)
[2020-11-02 08:45] LABS: CREATININE 0.7 mg/dL (0.55-1.3)
[2020-11-02 08:47] LABS: BILIRUBIN,TOTAL 0.6 mg/dL (0.2-1); TOT PROT 6.8 g/dl (6.4-8.2)
[2020-11-02] MEDS ORDERED: ceFAZolin 2 GRAM PREMIX BAG IVPB SCH (10:00)
[2020-11-02] MEDS: CEFAZOLIN 2 GM/D5W 2 GM/50 ML ML IVPB SCH ×2 (10:47→18:16)
[2020-11-02] MEDS: LISINOPRIL 5 MG TABLET PO SCH (10:48)
[2020-11-02] MEDS: TOLNAFTATE 1% POWDER 45 GM POW TP SCH (22:20)
[2020-11-03] MEDS: CEFAZOLIN 2 GM/D5W 2 GM/50 ML ML IVPB SCH ×2 (02:10→10:01)
[2020-11-03] MEDS: LISINOPRIL 5 MG TABLET PO SCH (10:01)
[2020-11-03] MEDS: TOLNAFTATE 1% POWDER 45 GM POW TP SCH ×2 (10:02→22:53)
[2020-11-03 11:15] LABS: HEMATOCRIT 39.1 % (35.4-49); HEMOGLOBIN 13.4 GM/dL (11.7-16.9); MCH 32.1 pg (25.7-33.7); MCHC 34.1 g/dl (32.0-35.9); MEAN CELL VOLUME 93.9 fl (80-96); MEAN PLT VOLUME 8.8 fl (7.5-11.1); PLATELET COUNT 246 K/MM3 (134-434); RBC 4.16 M/mm3 (4.00-5.60); RDW 13.2 % (11.9-15.9); WHITE BLOOD COUNT 11.1 K/mm3 (4.0-10.0)
[2020-11-03 11:29] LABS: ALBUMIN 3.2 g/dl (3.4-5.0)
[2020-11-03 11:30] LABS: BLOOD UREA NITROGEN 9.2 mg/dL (7-18)
[2020-11-03 11:33] LABS: CREATININE 0.8 mg/dL (0.55-1.3)
[2020-11-03 11:34] LABS: BILIRUBIN,TOTAL 0.5 mg/dL (0.2-1); TOT PROT 7.1 g/dl (6.4-8.2)
[2020-11-03 11:38] LABS: CALCIUM 8.8 mg/dL (8.5-10.1)
[2020-11-03 12:25] LABS: HIV INTERPRETATION NEGATIVE (NEGATIVE)
[2020-11-03] MEDS: CEFTRIAXONE 2 GM in DEXTROSE 5%-WATER 2 GM/100 ML BAG IVPB SCH (17:17)
[2020-11-03] MEDS: BENZOCAINE/MENTH/CETYLPYRD CL 1 EACH LOZENGE MM PRN (21:56)
[2020-11-04 06:16] VITALS: TEMP 97.8
[2020-11-04] MEDS: CEFTRIAXONE 2 GM in DEXTROSE 5%-WATER 2 GM/100 ML BAG IVPB SCH (09:58)
[2020-11-04] MEDS: TOLNAFTATE 1% POWDER 45 GM POW TP SCH (10:05)
[2020-11-04] MEDS: LISINOPRIL 5 MG TABLET PO SCH (10:05)
[2020-11-04] MEDS ORDERED: KETOCONAZOLE 2% TOPICAL CREAM 15 GM TUBE TP SCH (12:15)
[2020-11-04 12:17] VITALS: BP 132/81; PULSE 86
== END 2020-11-04 14:30 | disposition home or self-care (01) | DRG 383 ==
LOC: JER 17:32 → JERBED 19:52 → J6WEST-2 11-02 00:35
PROVIDERS: ADMIT Hospitalist; ATTEND Family Medicine
DX: L03.116 Cellulitis of left lower limb (principal); N39.0 Urinary tract infection, site not specified; Z68.44 Body mass index [BMI] 60.0-69.9, adult; E66.01 Morbid (severe) obesity due to excess calories; I10 Essential (primary) hypertension; R31.9 Hematuria, unspecified; J06.9 Acute upper respiratory infection, unspecified; B35.3 Tinea pedis; D72.829 Elevated white blood cell count, unspecified; N40.0 Benign prostatic hyperplasia without lower urinary tract symptoms; B96.20 Unspecified Escherichia coli [E. coli] as the cause of diseases classified elsewhere
CPT/HCPCS: 36415; 80053; 81003; 83605; 85025; 85027; 87040; 87086; 87186; 87389; 87491; 87591; 93971-TC; 99285-25; C9803; U0003

== ENCOUNTER 2020-12-26 16:45 | Inpatient (IN) | payer OTHER ==
[2020-12-26] MEDS ORDERED: SODIUM CHLORIDE 0.9% 1000 ML INFUS.BAG IV ONE (17:41)
[2020-12-26] MEDS ORDERED: ACETAMINOPHEN 1000 MG/100 ML VIAL (NON FORMULARY) IVPB ONE (17:41)
[2020-12-26] MEDS ORDERED: ACETAMINOPHEN INJECTION 100 ML IVPB ONE (18:29)
[2020-12-26] MEDS ORDERED: VANCOMYCIN 1 GM in D5W (PRE-DOCKED) 1,000 MG/250 ML IVPB ONE (18:43)
[2020-12-26 18:50] LABS: BASO % 0.6 % (0-2.0); HEMOGLOBIN 14.6 GM/dL (11.7-16.9); LYMPH % 2.6 % (8-40); MCH 32.2 pg (25.7-33.7); MCHC 33.9 g/dl (32.0-35.9); MEAN PLT VOLUME 9.7 fl (7.5-11.1); MONO % 4.9 % (3.8-10.2); NEUT % 91.9 % (42.8-82.8); PLATELET COUNT 216 K/MM3 (134-434); RBC 4.53 M/mm3 (4.00-5.60); RDW 13.7 % (11.9-15.9); VENOUS O2 SATURATION 86.5 % (70-80); VENOUS PCO2 34.9 mmHg (38-52); VENOUS PH 7.43 (7.310-7.410)
[2020-12-26 18:58] LABS: INR 1.13 (0.83-1.09); PROTHROMBIN TIME (PATIENT) 13.8 SEC (9.7-13.0)
[2020-12-26 19:01] LABS: ACTIVATED PTT 26.8 SECONDS (25.2-36.5); WHITE BLOOD COUNT 34.9 K/mm3 (4.0-10.0)
[2020-12-26 19:11] LABS: ALBUMIN 3.6 g/dl (3.4-5.0); BLOOD UREA NITROGEN 9.9 mg/dL (7-18); MAGNESIUM 1.8 mg/dL (1.8-2.4)
[2020-12-26 19:16] LABS: BILIRUBIN,TOTAL 0.6 mg/dL (0.2-1); TOT PROT 7.6 g/dl (6.4-8.2)
[2020-12-26] MEDS ORDERED: VANCOMYCIN 1 GRAM (PRE-DOCKED) 1,000 MG/250 ML BAG IVPB ONE (20:06)
[2020-12-26] MEDS: SODIUM CHLORIDE 1,000 ML IV SCH (21:08)
[2020-12-26 21:18] LABS: ERYTHROCYTE SEDIMENTATION RATE 25 mm/hr (0-10)
[2020-12-26] MEDS: ENOXAPARIN NA (PORCINE) 40 MG/0.4 ML DISP.SYRIN SQ SCH (21:29)
[2020-12-26 22:42] LABS: ANISOCYTOSIS 0; MACROCYTOSIS 0; PLATELET ESTIMATE NORMAL
[2020-12-27 01:34] LABS: LACTIC ACID 3.2 mmol/L (0.4-2.0)
[2020-12-27 02:07] VITALS: BMI 60.2
[2020-12-27] MEDS: ACETAMINOPHEN 325 MG TABLET (FP) PO PRN ×3 (02:41→18:32)
[2020-12-27 02:57] LABS: EPI CELLS >36 /uL (0-25.1); HYALINE CASTS 38 /uL (0-3.1); PH,URINE 5.5 (5.0-8.0); URINE APPEARANCE CLOUDY; URINE BACTERIA 52 /uL (0-1359); URINE BILIRUBIN NEGATIVE (NEGATIVE); URINE COLOR DK YELLOW; URINE GLUCOSE (UA) NEGATIVE (NEGATIVE); URINE KETONE TRACE (NEGATIVE); URINE LEUK ESTERASE 1+ (NEGATIVE); URINE NITRITE NEGATIVE (NEGATIVE); URINE PROTEIN TRACE (NEGATIVE); URINE RBC 20 /uL (0-23.9); URINE WBC 334 /uL (0-25.8)
[2020-12-27 07:14] LABS: BASO % 0.5 % (0-2.0); EOS % 0.3 % (0-4.5); HEMATOCRIT 39.7 % (35.4-49); HEMOGLOBIN 13.5 GM/dL (11.7-16.9); LYMPH % 5.6 % (8-40); MCH 32.3 pg (25.7-33.7); MEAN PLT VOLUME 9.7 fl (7.5-11.1); MONO % 4.8 % (3.8-10.2); NEUT % 88.8 % (42.8-82.8); PLATELET COUNT 191 K/MM3 (134-434); RBC 4.18 M/mm3 (4.00-5.60); RDW 13.4 % (11.9-15.9); WHITE BLOOD COUNT 25.2 K/mm3 (4.0-10.0)
[2020-12-27 07:22] LABS: BLOOD UREA NITROGEN 9.3 mg/dL (7-18); CALCIUM 8.2 mg/dL (8.5-10.1)
[2020-12-27 07:27] LABS: CREATININE 0.7 mg/dL (0.55-1.3); PHOSPHOROUS 2.8 mg/dL (2.5-4.9)
[2020-12-27] MEDS: LISINOPRIL 5 MG TABLET PO SCH (09:11)
[2020-12-27] MEDS: ENOXAPARIN NA (PORCINE) 40 MG/0.4 ML DISP.SYRIN SQ SCH (09:15)
[2020-12-27] MEDS ORDERED: VANCOMYCIN 1 GM in D5W (PRE-DOCKED) 1,000 MG/250 ML IVPB SCH (10:00)
[2020-12-27] MEDS ORDERED: VANCOMYCIN 1 GRAM (PRE-DOCKED) 1,000 MG/250 ML BAG IVPB ONE (10:00)
[2020-12-27 11:59] LABS: ANISOCYTOSIS 0; HELMET CELLS 0; HOWELL-JOLLY BODIES 0; MACROCYTOSIS 0; OVALOCYTE 0; PLATELET ESTIMATE NORMAL; ROULEAU 0; SICKELED CELLS 0; TARGET CELLS 0; TEAR DROP CELLS 0; TOXIC GRANULATION 0
[2020-12-27] MEDS: CEFAZOLIN 2 GM/D5W 2 GM/50 ML ML IVPB SCH ×2 (14:05→17:09)
[2020-12-27] MEDS: SODIUM CHLORIDE 1,000 ML IV SCH (17:12)
[2020-12-27] MEDS ORDERED: PT OWN MED DRAWER 7, Y5N ONE (18:03)
[2020-12-27] MEDS: VANCOMYCIN PREMIX 1.5 GM 1,500 MG/300 ML BAG IVPB SCH (18:29)
[2020-12-28] MEDS: CEFAZOLIN 2 GM/D5W 2 GM/50 ML ML IVPB SCH ×3 (01:54→17:02)
[2020-12-28] MEDS: SODIUM CHLORIDE 1,000 ML IV SCH ×2 (01:55→23:07)
[2020-12-28] MEDS: ACETAMINOPHEN 325 MG TABLET (FP) PO PRN ×2 (03:23→09:26)
[2020-12-28] MEDS: VANCOMYCIN PREMIX 1.5 GM 1,500 MG/300 ML BAG IVPB SCH (06:41)
[2020-12-28 08:23] LABS: HEMATOCRIT 39.7 % (35.4-49); HEMOGLOBIN 13.3 GM/dL (11.7-16.9); MCH 32.2 pg (25.7-33.7); MCHC 33.4 g/dl (32.0-35.9); MEAN CELL VOLUME 96.3 fl (80-96); MEAN PLT VOLUME 9.5 fl (7.5-11.1); PLATELET COUNT 200 K/MM3 (134-434); RBC 4.12 M/mm3 (4.00-5.60); RDW 13.5 % (11.9-15.9)
[2020-12-28 08:55] LABS: CALCIUM 8.2 mg/dL (8.5-10.1)
[2020-12-28 08:56] LABS: BLOOD UREA NITROGEN 7.4 mg/dL (7-18)
[2020-12-28 08:59] LABS: CREATININE 0.7 mg/dL (0.55-1.3)
[2020-12-28] MEDS: LISINOPRIL 5 MG TABLET PO SCH (09:25)
[2020-12-28] MEDS: ENOXAPARIN NA (PORCINE) 40 MG/0.4 ML DISP.SYRIN SQ SCH (09:28)
[2020-12-28] MEDS: ACETAMINOPHEN WITH CODEINE 300MG/30MG TABLET PO PRN ×2 (17:05→23:07)
[2020-12-29] MEDS: CEFAZOLIN 2 GM/D5W 2 GM/50 ML ML IVPB SCH ×3 (01:22→17:33)
[2020-12-29 08:47] LABS: EOS % 1.2 % (0-4.5); HEMATOCRIT 40.8 % (35.4-49); LYMPH % 24.1 % (8-40); MCH 32.8 pg (25.7-33.7); MCHC 34.4 g/dl (32.0-35.9); MEAN CELL VOLUME 95.3 fl (80-96); MONO % 8.5 % (3.8-10.2); NEUT % 65.2 % (42.8-82.8); PLATELET COUNT 223 K/MM3 (134-434); RBC 4.28 M/mm3 (4.00-5.60); RDW 13.5 % (11.9-15.9); WHITE BLOOD COUNT 10.3 K/mm3 (4.0-10.0)
[2020-12-29] MEDS: ENOXAPARIN NA (PORCINE) 40 MG/0.4 ML DISP.SYRIN SQ SCH (09:22)
[2020-12-29] MEDS: LISINOPRIL 5 MG TABLET PO SCH (09:23)
[2020-12-29 10:37] LABS: ALBUMIN 3.1 g/dl (3.4-5.0); BLOOD UREA NITROGEN 8.8 mg/dL (7-18)
[2020-12-29 10:40] LABS: CREATININE 0.7 mg/dL (0.55-1.3)
[2020-12-29 10:42] LABS: BILIRUBIN,TOTAL 0.5 mg/dL (0.2-1)
[2020-12-29 10:43] LABS: CALCIUM 8.9 mg/dL (8.5-10.1)
[2020-12-29] MEDS: SODIUM CHLORIDE 1,000 ML IV SCH (13:30)
[2020-12-30] MEDS: CEFAZOLIN 2 GM/D5W 2 GM/50 ML ML IVPB SCH ×2 (01:37→09:21)
[2020-12-30] MEDS: SODIUM CHLORIDE 1,000 ML IV SCH (01:37)
[2020-12-30] MEDS: ENOXAPARIN NA (PORCINE) 40 MG/0.4 ML DISP.SYRIN SQ SCH (09:21)
[2020-12-30] MEDS: LISINOPRIL 5 MG TABLET PO SCH (09:21)
[2020-12-30 09:26] VITALS: BP 163/91; PULSE 88; TEMP 98.5
== END 2020-12-30 14:29 | disposition home or self-care (01) | DRG 383 ==
LOC: JER 16:45 → JERBED 20:49 → J6S 12-27 00:38
PROVIDERS: ADMIT Hospitalist; ATTEND Family Medicine
DX: L03.116 Cellulitis of left lower limb (principal); E66.01 Morbid (severe) obesity due to excess calories; Z68.43 Body mass index [BMI] 50.0-59.9, adult; B35.3 Tinea pedis; I10 Essential (primary) hypertension
CPT/HCPCS: 36415; 71045-TC-FY; 80048; 80053; 81003; 82803; 83605; 83735; 84100; 85025; 85027; 85610; 85651; 85730; 86140; 87040; 87086; 93005; 93010; 93971-TC; 99285-25; C9803; G0480; J0131; U0003; U0005

== ENCOUNTER 2021-04-27 12:36 | Inpatient (IN) | payer OTHER ==
[2021-04-27] MEDS ORDERED: ACETAMINOPHEN 1000 MG/100 ML VIAL (NON FORMULARY) IVPB ONE (14:45)
[2021-04-27] MEDS ORDERED: ACETAMINOPHEN INJECTION 100 ML IVPB ONE (15:13)
[2021-04-27 16:08] LABS: HEMATOCRIT 40.9 % (35.4-49); HEMOGLOBIN 13.7 GM/dL (11.7-16.9); MCH 31.4 pg (25.7-33.7); MCHC 33.5 g/dl (32.0-35.9); MEAN CELL VOLUME 93.9 fl (80-96); MEAN PLT VOLUME 8.8 fl (7.5-11.1); PLATELET COUNT 218 10^3/uL (134-434); RBC 4.35 M/mm3 (4.00-5.60); RDW 13.6 % (11.9-15.9)
[2021-04-27 16:31] LABS: CALCIUM 8.7 mg/dL (8.5-10.1)
[2021-04-27 16:32] LABS: BLOOD UREA NITROGEN 11.7 mg/dL (7-18)
[2021-04-27 16:35] LABS: CREATININE 0.9 mg/dL (0.55-1.3)
[2021-04-27 16:37] LABS: ANISOCYTOSIS 0; HELMET CELLS 0; HOWELL-JOLLY BODIES 0; MACROCYTOSIS 0; OVALOCYTE 0; PLATELET ESTIMATE NORMAL; ROULEAU 0; SICKELED CELLS 0; TARGET CELLS 0; TEAR DROP CELLS 0; TOXIC GRANULATION 0
[2021-04-27 16:38] LABS: BILIRUBIN,TOTAL 0.6 mg/dL (0.2-1); TOT PROT 7.4 g/dl (6.4-8.2)
[2021-04-27] MEDS ORDERED: VANCOMYCIN 1 GM in D5W (PRE-DOCKED) 1,000 MG/250 ML IVPB ONE (16:52)
[2021-04-27] MEDS ORDERED: PIPERACILLIN/TAZOB 4.5 GM 4.5 GM in DEXTROSE 5%-WATER 100 ML IVPB ONE (16:52)
[2021-04-27] MEDS ORDERED: SODIUM CHLORIDE 1,000 ML IV STA (17:13)
[2021-04-27] MEDS ORDERED: VANCOMYCIN 1 GRAM (PRE-DOCKED) 1,000 MG/250 ML BAG IVPB ONE (17:21)
[2021-04-27] MEDS ORDERED: PIPERACILLIN/TAZOB 4.5 GM 4.5 GM/100 ML BAG IVPB ONE (17:21)
[2021-04-27] MEDS ORDERED: IBUPROFEN 600 MG TABLET (FP) PO PRN (19:24)
[2021-04-27] MEDS ORDERED: SODIUM CHLORIDE 0.9% 1000 ML INFUS.BAG IV ONE (20:04)
[2021-04-27] MEDS: ENOXAPARIN NA (PORCINE) 40 MG/0.4 ML DISP.SYRIN SQ SCH (21:30)
[2021-04-27] MEDS: KETOCONAZOLE 2% CREAM - 60GM TUBE TP SCH (21:30)
[2021-04-27] MEDS: CEFAZOLIN 2 GM in DEXTROSE 5%-WATER - 100 ML IVPB SCH (21:30)
[2021-04-27] MEDS ORDERED: CEFAZOLIN 2 GM/D5W 2 GM/50 ML ML IVPB ONE (21:43)
[2021-04-27] MEDS ORDERED: ENOXAPARIN NA (PORCINE) 40 MG/0.4 ML DISP.SYRIN SQ ONE (21:43)
[2021-04-27 23:50] VITALS: BMI 64.3
[2021-04-28] MEDS: CEFAZOLIN 2 GM in DEXTROSE 5%-WATER - 100 ML IVPB SCH ×3 (01:45→18:05)
[2021-04-28 07:17] LABS: HEMATOCRIT 39.6 % (35.4-49); HEMOGLOBIN 13.4 GM/dL (11.7-16.9); MCH 31.9 pg (25.7-33.7); MEAN CELL VOLUME 93.9 fl (80-96); MEAN PLT VOLUME 8.5 fl (7.5-11.1); PLATELET COUNT 196 10^3/uL (134-434); RBC 4.21 M/mm3 (4.00-5.60); RDW 13.3 % (11.9-15.9); WHITE BLOOD COUNT 14.7 K/mm3 (4.0-10.0)
[2021-04-28 07:37] LABS: ALBUMIN 2.7 g/dl (3.4-5.0); BLOOD UREA NITROGEN 9.5 mg/dL (7-18); CALCIUM 8.4 mg/dL (8.5-10.1); MAGNESIUM 2.4 mg/dL (1.8-2.4)
[2021-04-28 07:40] LABS: CREATININE 0.6 mg/dL (0.55-1.3)
[2021-04-28 07:41] LABS: PHOSPHOROUS 2.9 mg/dL (2.5-4.9)
[2021-04-28 07:42] LABS: BILIRUBIN,TOTAL 0.6 mg/dL (0.2-1); TOT PROT 6.1 g/dl (6.4-8.2)
[2021-04-28] MEDS: ACETAMINOPHEN 325 MG TABLET (FP) PO PRN (08:42)
[2021-04-28] MEDS: LISINOPRIL 5 MG TABLET PO SCH (09:57)
[2021-04-28] MEDS: ENOXAPARIN NA (PORCINE) 40 MG/0.4 ML DISP.SYRIN SQ SCH ×3 (09:59→22:05)
[2021-04-28] MEDS: KETOCONAZOLE 2% CREAM - 60GM TUBE TP SCH (11:36)
[2021-04-28] MEDS ORDERED: PT OWN MED DRAWER 7, Y5N ONE (18:04)
[2021-04-29] MEDS: CEFAZOLIN 2 GM in DEXTROSE 5%-WATER - 100 ML IVPB SCH ×3 (01:45→17:16)
[2021-04-29] MEDS: LISINOPRIL 5 MG TABLET PO SCH (09:43)
[2021-04-29] MEDS: ENOXAPARIN NA (PORCINE) 40 MG/0.4 ML DISP.SYRIN SQ SCH (09:43)
[2021-04-29] MEDS: KETOCONAZOLE 2% CREAM - 60GM TUBE TP SCH (09:43)
[2021-04-29 12:46] LABS: BASO % 1.1 % (0-2.0); EOS % 1.3 % (0-4.5); HEMATOCRIT 43.6 % (35.4-49); HEMOGLOBIN 14.6 GM/dL (11.7-16.9); LYMPH % 22.9 % (8-40); MCH 31.5 pg (25.7-33.7); MCHC 33.5 g/dl (32.0-35.9); MEAN PLT VOLUME 8.6 fl (7.5-11.1); MONO % 10.2 % (3.8-10.2); NEUT % 64.5 % (42.8-82.8); PLATELET COUNT 237 10^3/uL (134-434); RBC 4.64 M/mm3 (4.00-5.60); RDW 13.5 % (11.9-15.9); WHITE BLOOD COUNT 12.7 K/mm3 (4.0-10.0)
[2021-04-30] MEDS ORDERED: PT OWN MED DRAWER 7, Y5N ONE ×3 (01:05→09:18)
[2021-04-30] MEDS: CEFAZOLIN 2 GM in DEXTROSE 5%-WATER - 100 ML IVPB SCH ×3 (01:16→17:33)
[2021-04-30] MEDS: ENOXAPARIN NA (PORCINE) 40 MG/0.4 ML DISP.SYRIN SQ SCH ×4 (01:16→21:31)
[2021-04-30 08:29] LABS: BASO % 1.2 % (0-2.0); EOS % 1.3 % (0-4.5); HEMATOCRIT 41.9 % (35.4-49); HEMOGLOBIN 14.5 GM/dL (11.7-16.9); LYMPH % 21.3 % (8-40); MCH 32.5 pg (25.7-33.7); MCHC 34.5 g/dl (32.0-35.9); MEAN CELL VOLUME 94.3 fl (80-96); MEAN PLT VOLUME 8.8 fl (7.5-11.1); MONO % 6.8 % (3.8-10.2); NEUT % 69.4 % (42.8-82.8); PLATELET COUNT 234 10^3/uL (134-434); RBC 4.45 M/mm3 (4.00-5.60); RDW 13.3 % (11.9-15.9)
[2021-04-30] MEDS: LISINOPRIL 5 MG TABLET PO SCH (09:44)
[2021-04-30] MEDS: KETOCONAZOLE 2% CREAM - 60GM TUBE TP SCH (09:44)
[2021-04-30] MEDS: ACETAMINOPHEN 325 MG TABLET (FP) PO PRN (21:31)
[2021-05-01] MEDS: CEFAZOLIN 2 GM in DEXTROSE 5%-WATER - 100 ML IVPB SCH ×2 (01:59→09:41)
[2021-05-01] MEDS: ENOXAPARIN NA (PORCINE) 40 MG/0.4 ML DISP.SYRIN SQ SCH (09:41)
[2021-05-01] MEDS: LISINOPRIL 5 MG TABLET PO SCH (09:41)
[2021-05-01] MEDS: KETOCONAZOLE 2% CREAM - 60GM TUBE TP SCH (09:44)
[2021-05-01 12:04] VITALS: BP 130/79; PULSE 88; TEMP 97.9
== END 2021-05-01 12:00 | disposition home or self-care (01) | DRG 383 ==
LOC: JER 12:36 → JERBED 18:58 → J7W 22:48
PROVIDERS: ADMIT Internal Medicine; ATTEND Family Medicine
DX: L03.116 Cellulitis of left lower limb (principal); D72.829 Elevated white blood cell count, unspecified; R50.9 Fever, unspecified; I10 Essential (primary) hypertension; R60.9 Edema, unspecified; F17.200 Nicotine dependence, unspecified, uncomplicated; Z68.44 Body mass index [BMI] 60.0-69.9, adult; E66.01 Morbid (severe) obesity due to excess calories; R00.0 Tachycardia, unspecified
CPT/HCPCS: 36415; 80053; 83605; 83615; 83735; 84100; 85025; 85027; 86140; 87040; 93971-TC; 97116-GP; 97161-GP; 99285-25; C9803; J0131; U0003; U0005

== ENCOUNTER 2021-09-18 20:19 | Inpatient (IN) | payer OTHER ==
[2021-09-18] MEDS ORDERED: SODIUM CHLORIDE IV ONE (21:59)
[2021-09-18] MEDS ORDERED: ACETAMINOPHEN 1000 MG/100 ML BAG IVPB ONE (22:17)
[2021-09-18] MEDS ORDERED: LACTATED RINGERS SOLUTION 1000 ML INFUS.BAG IV ONE (22:17)
[2021-09-18] MEDS ORDERED: PIPERACILLIN/TAZOB 4.5 GM 4.5 GM in DEXTROSE 5%-WATER 100 ML IVPB ONE (22:17)
[2021-09-18] MEDS ORDERED: VANCOMYCIN 1 GM in D5W (PRE-DOCKED) 1,000 MG/250 ML IVPB ONE (22:17)
[2021-09-18] MEDS ORDERED: ACETAMINOPHEN INJECTION 100 ML IVPB ONE (22:37)
[2021-09-18] MEDS ORDERED: VANCOMYCIN 1 GRAM (PRE-DOCKED) 1,000 MG/250 ML BAG IVPB ONE (22:38)
[2021-09-18 22:43] LABS: HEMATOCRIT 44.7 % (35.4-49); HEMOGLOBIN 14.6 GM/dL (11.7-16.9); MCH 30.9 pg (25.7-33.7); MCHC 32.7 g/dl (32.0-35.9); MEAN CELL VOLUME 94.4 fl (80-96); MEAN PLT VOLUME 8.9 fl (7.5-11.1); PLATELET COUNT 254 10^3/uL (134-434); RBC 4.73 M/mm3 (4.00-5.60); RDW 13.8 % (11.9-15.9); WHITE BLOOD COUNT 28.5 K/mm3 (4.0-10.0)
[2021-09-18 22:54] LABS: INR 1.17 (0.83-1.09); PROTHROMBIN TIME (PATIENT) 13.5 SEC (9.7-13.0)
[2021-09-18 23:02] LABS: CHLORIDE 105 mmol/L (98-107); SODIUM 138 mmol/L (136-145)
[2021-09-18 23:04] LABS: CALCIUM 9.5 mg/dL (8.5-10.1)
[2021-09-18 23:05] LABS: ALBUMIN 3.6 g/dl (3.4-5.0); ANION GAP 9 MMOL/L (8-16); BLOOD UREA NITROGEN 9.5 mg/dL (7-18); CO2 25 mmol/L (21-32); GLUCOSE,RANDOM 118 mg/dL (74-106)
[2021-09-18 23:08] LABS: CREATININE 0.9 mg/dL (0.55-1.3); SGOT/AST 43 U/L (15-37); SGPT/ALT 43 U/L (13-61)
[2021-09-18 23:09] LABS: TOT PROT 8.1 g/dl (6.4-8.2)
[2021-09-18 23:10] LABS: BILIRUBIN,TOTAL 0.6 mg/dL (0.2-1)
[2021-09-18 23:11] LABS: ALK PHOS 82 U/L (45-117)
[2021-09-18 23:31] LABS: ANISOCYTOSIS 2+; MACROCYTOSIS 0; OVALOCYTE 1+; PLATELET ESTIMATE NORMAL; TEAR DROP CELLS 1+
[2021-09-19 00:09] LABS: LACTIC ACID 2.1 mmol/L (0.4-2.0)
[2021-09-19 01:42] LABS: EPI CELLS 6 /uL (0-25.1); HYALINE CASTS 2 /uL (0-3.1); PH,URINE 5.5 (5.0-8.0); URINE APPEARANCE CLEAR; URINE BACTERIA 9 /uL (0-1359); URINE BILIRUBIN NEGATIVE (NEGATIVE); URINE COLOR YELLOW; URINE GLUCOSE (UA) NEGATIVE (NEGATIVE); URINE KETONE TRACE (NEGATIVE); URINE LEUK ESTERASE 1+ (NEGATIVE); URINE NITRITE NEGATIVE (NEGATIVE); URINE PROTEIN NEGATIVE (NEGATIVE); URINE RBC 6 /uL (0-23.9); URINE UROBILINOGEN 0.2 mg/dL (0.2-1.0); URINE WBC 81 /uL (0-25.8)
[2021-09-19] MEDS ORDERED: ACETAMINOPHEN 325 MG TABLET (FP) ONE (04:17)
[2021-09-19] MEDS: ACETAMINOPHEN 325 MG TABLET (FP) PO PRN (04:30)
[2021-09-19 06:04] VITALS: BMI 64.5
[2021-09-19] MEDS ORDERED: ENOXAPARIN NA (PORCINE) 40 MG/0.4 ML DISP.SYRIN SQ SCH (10:00)
[2021-09-19] MEDS: SODIUM CHLORIDE 1,000 ML IV SCH (12:36)
[2021-09-19] MEDS: CEFAZOLIN 2 GM in DEXTROSE 5%-WATER - 50 ML IVPB SCH ×2 (12:37→17:51)
[2021-09-19] MEDS: ENOXAPARIN NA (PORCINE) 40 MG/0.4 ML DISP.SYRIN SQ SCH ×2 (12:46→21:26)
[2021-09-19] MEDS: IBUPROFEN 600 MG TABLET (FP) PO PRN ×2 (14:48→21:26)
[2021-09-19 15:20] LABS: HIV INTERPRETATION NEGATIVE (NEGATIVE)
[2021-09-19] MEDS: NYSTATIN 100,000 UNIT/GM TOPICAL CREAM 15 GM TUBE TP SCH (21:26)
[2021-09-20] MEDS: CEFAZOLIN 2 GM in SODIUM CHLORIDE 100 ML IVPB SCH ×3 (01:28→17:56)
[2021-09-20] MEDS: IBUPROFEN 600 MG TABLET (FP) PO PRN ×3 (04:55→21:26)
[2021-09-20 09:35] LABS: BASO % 0.7 % (0-2.0); EOS % 1.5 % (0-4.5); HEMATOCRIT 39.9 % (35.4-49); HEMOGLOBIN 12.8 GM/dL (11.7-16.9); LYMPH % 17.1 % (8-40); MCH 30.4 pg (25.7-33.7); MCHC 32.1 g/dl (32.0-35.9); MEAN CELL VOLUME 94.5 fl (80-96); MEAN PLT VOLUME 9.4 fl (7.5-11.1); MONO % 8.9 % (3.8-10.2); NEUT % 71.8 % (42.8-82.8); PLATELET COUNT 189 10^3/uL (134-434); RBC 4.22 M/mm3 (4.00-5.60); WHITE BLOOD COUNT 12.4 K/mm3 (4.0-10.0)
[2021-09-20] MEDS: ENOXAPARIN NA (PORCINE) 40 MG/0.4 ML DISP.SYRIN SQ SCH ×3 (09:35→21:28)
[2021-09-20] MEDS: SODIUM CHLORIDE 1,000 ML IV SCH (09:37)
[2021-09-20] MEDS: NYSTATIN 100,000 UNIT/GM TOPICAL CREAM 15 GM TUBE TP SCH ×2 (09:38→21:27)
[2021-09-20 10:14] LABS: CALCIUM 8.7 mg/dL (8.5-10.1)
[2021-09-20 10:15] LABS: BLOOD UREA NITROGEN 8.4 mg/dL (7-18); MAGNESIUM 2.2 mg/dL (1.8-2.4)
[2021-09-20 10:18] LABS: CREATININE 0.6 mg/dL (0.55-1.3); PHOSPHOROUS 2.7 mg/dL (2.5-4.9)
[2021-09-20 10:19] LABS: TOT PROT 7.1 g/dl (6.4-8.2)
[2021-09-20 10:20] LABS: BILIRUBIN,TOTAL 0.6 mg/dL (0.2-1)
[2021-09-20] MEDS ORDERED: KETOROLAC TROMETHAMINE 30 MG/1 ML VIAL IM ONE (22:59)
[2021-09-21] MEDS: CEFAZOLIN 2 GM in SODIUM CHLORIDE 100 ML IVPB SCH ×3 (02:20→17:46)
[2021-09-21] MEDS: ENOXAPARIN NA (PORCINE) 40 MG/0.4 ML DISP.SYRIN SQ SCH ×2 (10:03→21:12)
[2021-09-21] MEDS: NYSTATIN 100,000 UNIT/GM TOPICAL CREAM 15 GM TUBE TP SCH ×2 (10:03→21:12)
[2021-09-21] MEDS: SODIUM CHLORIDE 1,000 ML IV SCH ×2 (10:03→16:06)
[2021-09-21 12:06] LABS: BASO % 0.6 % (0-2.0); EOS % 1.3 % (0-4.5); HEMATOCRIT 39.6 % (35.4-49); HEMOGLOBIN 12.7 GM/dL (11.7-16.9); LYMPH % 16.8 % (8-40); MCH 30.3 pg (25.7-33.7); MCHC 32.1 g/dl (32.0-35.9); MEAN CELL VOLUME 94.5 fl (80-96); MEAN PLT VOLUME 9.7 fl (7.5-11.1); MONO % 8.7 % (3.8-10.2); NEUT % 72.6 % (42.8-82.8); PLATELET COUNT 218 10^3/uL (134-434); RBC 4.19 M/mm3 (4.00-5.60); RDW 13.9 % (11.9-15.9); WHITE BLOOD COUNT 11.2 K/mm3 (4.0-10.0)
[2021-09-21 12:19] LABS: CALCIUM 8.7 mg/dL (8.5-10.1)
[2021-09-21 12:20] LABS: ALBUMIN 2.9 g/dl (3.4-5.0); BLOOD UREA NITROGEN 9.1 mg/dL (7-18)
[2021-09-21 12:23] LABS: CREATININE 0.7 mg/dL (0.55-1.3)
[2021-09-21 12:24] LABS: BILIRUBIN,TOTAL 0.4 mg/dL (0.2-1)
[2021-09-21 12:25] LABS: TOT PROT 6.8 g/dl (6.4-8.2)
[2021-09-21] MEDS: KETOROLAC TROMETHAMINE 15 MG/ML VIAL IVPUSH PRN (16:06)
[2021-09-21] MEDS: ACETAMINOPHEN 325 MG TABLET (FP) PO PRN (17:46)
[2021-09-21] MEDS: HYDROCHLOROTHIAZIDE 12.5 MG CAPSULE (FP) PO SCH (20:11)
[2021-09-22] MEDS: CEFAZOLIN 2 GM in SODIUM CHLORIDE 100 ML IVPB SCH ×3 (03:00→17:24)
[2021-09-22] MEDS: HYDROCHLOROTHIAZIDE 12.5 MG CAPSULE (FP) PO SCH (10:30)
[2021-09-22] MEDS: NYSTATIN 100,000 UNIT/GM TOPICAL CREAM 15 GM TUBE TP SCH ×2 (10:30→21:21)
[2021-09-22] MEDS: ENOXAPARIN NA (PORCINE) 40 MG/0.4 ML DISP.SYRIN SQ SCH ×2 (10:30→21:20)
[2021-09-22] MEDS ORDERED: LISINOPRIL 10 MG TABLET PO SCH (12:45)
[2021-09-22] MEDS: KETOROLAC TROMETHAMINE 15 MG/ML VIAL IVPUSH PRN ×2 (17:25→23:23)
[2021-09-23] MEDS: CEFAZOLIN 2 GM in SODIUM CHLORIDE 100 ML IVPB SCH ×3 (02:15→17:27)
[2021-09-23] MEDS: KETOROLAC TROMETHAMINE 15 MG/ML VIAL IVPUSH PRN ×3 (06:11→19:01)
[2021-09-23] MEDS: ENOXAPARIN NA (PORCINE) 40 MG/0.4 ML DISP.SYRIN SQ SCH ×2 (09:19→21:34)
[2021-09-23] MEDS: ACETAMINOPHEN 325 MG TABLET (FP) PO PRN ×2 (09:22→21:36)
[2021-09-23] MEDS: HYDROCHLOROTHIAZIDE 12.5 MG CAPSULE (FP) PO SCH (09:22)
[2021-09-23] MEDS: LISINOPRIL 10 MG TABLET PO SCH (09:22)
[2021-09-23] MEDS: NYSTATIN 100,000 UNIT/GM TOPICAL CREAM 15 GM TUBE TP SCH ×2 (09:23→21:35)
[2021-09-23 09:44] LABS: BASO % 1.2 % (0-2.0); EOS % 0.9 % (0-4.5); HEMATOCRIT 42.2 % (35.4-49); HEMOGLOBIN 14.1 GM/dL (11.7-16.9); MCH 31.3 pg (25.7-33.7); MCHC 33.5 g/dl (32.0-35.9); MEAN CELL VOLUME 93.3 fl (80-96); MEAN PLT VOLUME 8.8 fl (7.5-11.1); MONO % 7.1 % (3.8-10.2); NEUT % 71.8 % (42.8-82.8); PLATELET COUNT 254 10^3/uL (134-434); RBC 4.52 M/mm3 (4.00-5.60); RDW 13.9 % (11.9-15.9)
[2021-09-23 10:14] LABS: BLOOD UREA NITROGEN 10.2 mg/dL (7-18); CALCIUM 9.2 mg/dL (8.5-10.1); MAGNESIUM 2.3 mg/dL (1.8-2.4)
[2021-09-23 10:16] LABS: PHOSPHOROUS 3.1 mg/dL (2.5-4.9)
[2021-09-23 10:17] LABS: CREATININE 0.7 mg/dL (0.55-1.3)
[2021-09-23] MEDS ORDERED: amLODIPine BESYLATE 5 MG TABLET (FP) PO ONE (11:41)
[2021-09-23] MEDS: GABAPENTIN 100 MG CAPSULE PO SCH ×2 (12:42→21:35)
[2021-09-24] MEDS: CEFAZOLIN 2 GM in SODIUM CHLORIDE 100 ML IVPB SCH ×2 (02:20→09:31)
[2021-09-24 09:20] LABS: BASO % 0.9 % (0-2.0); EOS % 1.1 % (0-4.5); HEMATOCRIT 41.8 % (35.4-49); LYMPH % 19.3 % (8-40); MCH 31.2 pg (25.7-33.7); MCHC 33.5 g/dl (32.0-35.9); MEAN CELL VOLUME 93.2 fl (80-96); MEAN PLT VOLUME 8.7 fl (7.5-11.1); MONO % 8.4 % (3.8-10.2); NEUT % 70.3 % (42.8-82.8); PLATELET COUNT 226 10^3/uL (134-434); RBC 4.48 M/mm3 (4.00-5.60); RDW 13.8 % (11.9-15.9); WHITE BLOOD COUNT 11.4 K/mm3 (4.0-10.0)
[2021-09-24] MEDS: LISINOPRIL 10 MG TABLET PO SCH (09:30)
[2021-09-24] MEDS: ACETAMINOPHEN 325 MG TABLET (FP) PO PRN (09:30)
[2021-09-24] MEDS: GABAPENTIN 100 MG CAPSULE PO SCH (09:30)
[2021-09-24] MEDS: ENOXAPARIN NA (PORCINE) 40 MG/0.4 ML DISP.SYRIN SQ SCH (09:32)
[2021-09-24] MEDS: NYSTATIN 100,000 UNIT/GM TOPICAL CREAM 15 GM TUBE TP SCH (09:41)
[2021-09-24 09:55] LABS: CALCIUM 8.9 mg/dL (8.5-10.1)
[2021-09-24 09:59] LABS: CREATININE 0.7 mg/dL (0.55-1.3)
[2021-09-24] MEDS ORDERED: amLODIPine BESYLATE 10 MG TABLET (FP) PO SCH (10:00)
[2021-09-24] MEDS ORDERED: FUROSEMIDE 40 MG/4 ML INJECTABLE VIAL IVPUSH SCH (13:15)
[2021-09-24 14:44] VITALS: BP 136/86; PULSE 93; TEMP 98.2
== END 2021-09-24 18:43 | disposition home or self-care (01) | DRG 720 ==
LOC: JER 20:19 → JERBED 22:18 → J6S 09-19 05:33
PROVIDERS: ADMIT Hospitalist; ATTEND Internal Medicine
DX: A41.9 Sepsis, unspecified organism (principal); E87.2 Acidosis; L03.116 Cellulitis of left lower limb; Z68.44 Body mass index [BMI] 60.0-69.9, adult; I10 Essential (primary) hypertension; E66.01 Morbid (severe) obesity due to excess calories; D72.829 Elevated white blood cell count, unspecified; B35.3 Tinea pedis; I16.0 Hypertensive urgency; F12.90 Cannabis use, unspecified, uncomplicated; R50.9 Fever, unspecified
CPT/HCPCS: 36415; 71045-TC-FY; 73590-TC-LT-FY; 73610-TC-LT-FY; 80048; 80053; 81003; 83036; 83605; 83735; 84100; 84484; 85025; 85610; 85651; 85730; 87040; 87086; 87389; 93005; 93010; 93971-TC; 99285-25; C9803; J0131; U0003; U0005

== ENCOUNTER 2024-01-29 06:10 | Emergency (ER) | payer OTHER ==
[2024-01-29 06:16] VITALS: RESP 18; TEMP 98.7; BMI 44.7
[2024-01-29] MEDS ORDERED: ACETAMINOPHEN 500 MG TABLET (FP) ONE (09:46)
[2024-01-29] MEDS ORDERED: DEXAMETHASONE SOD PHOSPHATE 10 MG/1 ML VIAL ONE (09:46)
[2024-01-29] MEDS: DEXAMETHASONE SOD PHOSPHATE 10 MG/1 ML VIAL IM ONE (09:52)
[2024-01-29] MEDS: ACETAMINOPHEN 500 MG TABLET (FP) PO ONE (09:52)
[2024-01-29] MEDS: ACETAMINOPHEN 1000 MG/100 ML BAG IVPB ONE (09:53)
[2024-01-29 10:19] LABS: BASO % 0.7 % (0-2.0); EOS % 1.4 % (0-4.5); HEMATOCRIT 43.9 % (35.4-49); HEMOGLOBIN 15.2 GM/dL (11.7-16.9); MCH 33.1 pg (25.7-33.7); MCHC 34.5 g/dl (32.0-35.9); MEAN CELL VOLUME 95.8 fl (80-96); MEAN PLT VOLUME 8.2 fl (7.5-11.1); MONO % 15.5 % (3.8-10.2); NEUT % 63.4 % (42.8-82.8); PLATELET COUNT 193 10^3/uL (134-434); RBC 4.58 M/mm3 (4.00-5.60); RDW 12.4 % (11.9-15.9); WHITE BLOOD COUNT 9.3 K/mm3 (4.0-10.0)
[2024-01-29 10:46] VITALS: BP 132/79; PULSE 82
[2024-01-30 14:07] LABS: EPSTEIN BARR ANTIBODY IgM <36.0 U/mL (0.0-35.9)
== END 2024-01-29 11:06 | disposition home or self-care (01) ==
LOC: JER 06:10
PROC: 3E023GC Introduction of Other Therapeutic Substance into Muscle, Percutaneous Approach (ICD-10-PCS; principal; 2024-01-29)
DX: J03.90 Acute tonsillitis, unspecified (principal); R50.9 Fever, unspecified; Z20.822 Contact with and (suspected) exposure to COVID-19
CPT/HCPCS: 0241U-QW; 36415; 85025; 86664; 86665; 87070; 87651; 99284-25; J1100

== ENCOUNTER 2024-12-29 14:25 | Observation (INO) | payer BC, OTHER ==
[2024-12-29] MEDS: ACETAMINOPHEN 1000 MG/100 ML BAG IVPB ONE ×2 (15:50→18:55)
[2024-12-29] MEDS ORDERED: ACETAMINOPHEN INJECTION 100 ML ONE (16:16)
[2024-12-29 16:17] LABS: VENOUS BASE EXCESS -1.6 mmol/L (-2-2); VENOUS O2 SATURATION 86.9 % (70-80); VENOUS PCO2 36.5 mmHg (38-52); VENOUS PH 7.408 (7.310-7.410)
[2024-12-29 16:23] LABS: HEMATOCRIT 47.4 % (40.1-51.0); HEMOGLOBIN 15.6 g/dL (13.7-17.5); MCHC 32.9 g/dl (32.3-36.5); MEAN CELL VOLUME 101.3 fl (79.0-92.2); MEAN PLT VOLUME 10.5 fl (9.4-12.4); PLATELET COUNT 212 x10^3/uL (163-337)
[2024-12-29 16:30] LABS: INR 1.12 (0.83-1.09); PROTHROMBIN TIME (PATIENT) 12.2 SEC (9.7-13.0)
[2024-12-29 16:33] LABS: ACTIVATED PTT 25.3 SECONDS (25.2-36.5)
[2024-12-29 16:39] LABS: POTASSIUM 3.4 mmol/L (3.5-5.1)
[2024-12-29 16:43] LABS: BLOOD UREA NITROGEN 11.7 mg/dL (7-18); CALCIUM 9.5 mg/dL (8.5-10.1)
[2024-12-29 16:44] LABS: ALBUMIN 3.9 g/dl (3.4-5.0)
[2024-12-29 16:47] LABS: CREATININE 1.1 mg/dL (0.55-1.3); LACTIC ACID 4.3 mmol/L (0.4-2.0)
[2024-12-29] MEDS ORDERED: VANCOMYCIN 1 GM PREMIX (F) 1 GM/200 ML BAG ONE (16:48)
[2024-12-29 16:49] LABS: BILIRUBIN,TOTAL 1.2 mg/dL (0.2-1); TOT PROT 7.8 g/dl (6.4-8.2); URINE APPEARANCE CLEAR; URINE BILIRUBIN NEGATIVE (NEGATIVE); URINE COLOR YELLOW; URINE GLUCOSE (UA) NEGATIVE (NEGATIVE); URINE KETONE NEGATIVE (NEGATIVE); URINE LEUK ESTERASE NEGATIVE (NEGATIVE); URINE NITRITE NEGATIVE (NEGATIVE); URINE PROTEIN NEGATIVE (NEGATIVE)
[2024-12-29] MEDS: VANCOMYCIN 1,000 MG in DEXTROSE 5%-WATER - 250 ML IVPB ONE (16:56)
[2024-12-29 17:01] LABS: ERYTHROCYTE SEDIMENTATION RATE 2 mm/hr (0-10)
[2024-12-29] MEDS ORDERED: POTASSIUM CHLORIDE ORAL LIQUID 20 MEQ/15 ML ONE (17:06)
[2024-12-29] MEDS: POTASSIUM CHLORIDE ORAL LIQUID 20 MEQ/15 ML PO ONE (17:25)
[2024-12-29] MEDS ORDERED: FAMOTIDINE 20 MG/50 ML IVPB 20 MG/50 ML MG IVPB ONE (18:10)
[2024-12-29] MEDS: CEFAZOLIN 500 MG in DEXTROSE 5%-WATER - 50 ML IVPB ONE (18:55)
[2024-12-29] MEDS: SODIUM CHLORIDE 0.9% 500 ML INFUS.BAG IV ONE (19:25)
[2024-12-29 20:06] LABS: LACTIC ACID 2.6 mmol/L (0.4-2.0)
[2024-12-29] MEDS ORDERED: AMPICILLIN NA/SULBACTAM NA 3 GM/100 ML BAG IVPB ONE (20:54)
[2024-12-29] MEDS: AMPICILLIN NA/SULBACTAM NA 3 GM in SODIUM CHLORIDE 100 ML IVPB SCH (21:03)
[2024-12-29] MEDS: SODIUM CHLORIDE 1,000 ML IV SCH (21:03)
[2024-12-29] MEDS ORDERED: GABAPENTIN 100 MG CAPSULE ONE (21:23)
[2024-12-29] MEDS: FAMOTIDINE 20 MG/50 ML IVPB 20 MG/50 ML MG IVPB ONE (21:33)
[2024-12-29] MEDS: GABAPENTIN 100 MG CAPSULE PO SCH (21:33)
[2024-12-29] MEDS ORDERED: MORPHINE SULFATE 2 MG/ML SYRINGE ONE (21:34)
[2024-12-29] MEDS: IBUPROFEN 600 MG TABLET (FP) PO PRN (23:05)
[2024-12-29] MEDS ORDERED: IBUPROFEN 600 MG TABLET (FP) PO ONE (23:34)
[2024-12-30 00:01] VITALS: BMI 42.7
[2024-12-30] MEDS: ACETAMINOPHEN 1000 MG/100 ML BAG IVPB PRN (00:19)
[2024-12-30 08:55] LABS: HEMATOCRIT 42.1 % (40.1-51.0); HEMOGLOBIN 13.8 g/dL (13.7-17.5); MCHC 32.8 g/dl (32.3-36.5); MEAN CELL VOLUME 102.2 fl (79.0-92.2); MEAN PLT VOLUME 10.6 fl (9.4-12.4); PLATELET COUNT 176 x10^3/uL (163-337); RDW 12.2 % (12.0-15.6)
[2024-12-30] MEDS: ENOXAPARIN NA (PORCINE) 40 MG/0.4 ML DISP.SYRIN SQ SCH (09:27)
[2024-12-30] MEDS: LISINOPRIL 20 MG TABLET PO SCH (09:27)
[2024-12-30 09:28] LABS: POTASSIUM 3.6 mmol/L (3.5-5.1)
[2024-12-30] MEDS: ASPIRIN COATED 81 MG TABLET.EC PO SCH (09:28)
[2024-12-30 09:35] LABS: BLOOD UREA NITROGEN 10.8 mg/dL (7-18)
[2024-12-30 09:38] LABS: CREATININE 0.7 mg/dL (0.55-1.3)
[2024-12-30 09:39] LABS: BILIRUBIN,TOTAL 1.2 mg/dL (0.2-1); TOT PROT 6.2 g/dl (6.4-8.2)
[2024-12-30] MEDS: FAMOTIDINE 20 MG TABLET PO SCH (11:02)
[2024-12-30 11:40] VITALS: RESP 18
[2024-12-31 09:39] LABS: ABSOLUTE IMMATURE GRANULOCYTES 0.06 x10^3/uL (0.0-0.031); BASOPHILS # 0.09 x10^3/uL (0.01-0.08); EOSINOPHIL % 0.7 % (0.8-7.0); EOSINOPHILS # 0.08 x10^3/uL (0.04-0.54); HEMOGLOBIN 13.6 g/dL (13.7-17.5); MCHC 32.4 g/dl (32.3-36.5); MEAN CELL VOLUME 101.7 fl (79.0-92.2); MEAN PLT VOLUME 10.7 fl (9.4-12.4); MONOCYTE # 0.86 x10^3/uL (0.30-0.82); MONOCYTE % 7.7 % (5.3-12.2); PLATELET COUNT 191 x10^3/uL (163-337); RDW 12.1 % (12.0-15.6)
[2024-12-31 09:44] VITALS: BP 157/85; PULSE 78; TEMP 99
[2024-12-31 15:39] LABS: BLOOD UREA NITROGEN 8.6 mg/dL (7-18); CREATININE 0.7 mg/dL (0.55-1.3); POTASSIUM 3.6 mmol/L (3.5-5.1)
== END 2024-12-31 14:11 | disposition home or self-care (01) ==
LOC: JER 14:25 → JERBED 17:15 → UNDOADMOB 17:15 → INTOOBSV 17:15 → JERBED 19:17 → J5S 23:49 → JERBED 23:49
PROVIDERS: ADMIT Hospitalist; ATTEND Internal Medicine
PROC: 3E033NZ Introduction of Analgesics, Hypnotics, Sedatives into Peripheral Vein, Percutaneous Approach (ICD-10-PCS; principal; 2024-12-29)
PROC: 3E023GC Introduction of Other Therapeutic Substance into Muscle, Percutaneous Approach (ICD-10-PCS; 2024-12-29)
PROC: 3E03329 Introduction of Other Anti-infective into Peripheral Vein, Percutaneous Approach (ICD-10-PCS; 2024-12-29)
DX: L03.116 Cellulitis of left lower limb (principal); E66.01 Morbid (severe) obesity due to excess calories; I10 Essential (primary) hypertension; E78.5 Hyperlipidemia, unspecified; B35.3 Tinea pedis
CPT/HCPCS: 0241U-QW; 36415; 71045-TC-FY; 73560-TC-LT-FY; 73590-TC-LT-FY; 73610-TC-LT-FY; 80048; 80053; 81003; 82803; 83605; 84484; 85025; 85027; 85610; 85651; 85730; 86850; 86900; 86901; 87040; 87086; 93005; 93010; 93970-TC; 99285-25; G0378; J0131

== ENCOUNTER 2025-01-18 10:52 | Emergency (ER) | payer OTHER ==
[2025-01-18 11:13] VITALS: BP 133/75; PULSE 100; RESP 18; TEMP 98; BMI 41.3
[2025-01-18] MEDS ORDERED: KETOROLAC TROMETHAMINE 30 MG/1 ML VIAL ONE (12:33)
[2025-01-18] MEDS ORDERED: ACETAMINOPHEN 500 MG TABLET (FP) ONE (12:33)
[2025-01-18] MEDS ORDERED: CycloBENZAprine HCL 10 MG TABLET (FP) ONE (12:33)
[2025-01-18] MEDS: KETOROLAC TROMETHAMINE 30 MG/1 ML VIAL IM ONE (12:42)
[2025-01-18] MEDS: ACETAMINOPHEN 500 MG TABLET (FP) PO ONE (12:43)
[2025-01-18] MEDS: CycloBENZAprine HCL 10 MG TABLET (FP) PO ONE (12:43)
[2025-01-18 12:45] LABS: PH,URINE 6.5 (5.0-8.0); URINE APPEARANCE CLEAR; URINE BILIRUBIN NEGATIVE (NEGATIVE); URINE COLOR YELLOW; URINE GLUCOSE (UA) NEGATIVE (NEGATIVE); URINE KETONE TRACE (NEGATIVE); URINE LEUK ESTERASE NEGATIVE (NEGATIVE); URINE NITRITE NEGATIVE (NEGATIVE); URINE PROTEIN NEGATIVE (NEGATIVE)
[2025-01-18] MEDS ORDERED: LIDOCAINE 5% TOPICAL PATCH ONE (12:50)
[2025-01-18] MEDS: LIDOCAINE 5% TOPICAL PATCH TP ONE (12:53)
[2025-01-18] MEDS ORDERED: LIDOCAINE PATCH REMOVAL MC SCH (22:00)
== END 2025-01-18 13:15 | disposition home or self-care (01) ==
LOC: JERFT 10:52
PROC: 3E0333Z Introduction of Anti-inflammatory into Peripheral Vein, Percutaneous Approach (ICD-10-PCS; principal; 2025-01-18)
DX: M54.50 Low back pain, unspecified (principal)
CPT/HCPCS: 81003; 87086; 99284-25